=== PATIENT | male | born 1960 | race Caucasian/White ===

== ENCOUNTER 2022-03-01 10:40 | Inpatient (IN) | payer BC, SELFPAY ==
[2022-03-01] VITALS (60 sets, daily range): BP systolic 93–169; BP diastolic 63–134; PULSE 57–175; RESP 5–27; TEMP 36.7–36.9; O2SAT 95–99; BMI 25.7; BMI 25.1
--- NOTE | 2022-03-01 10:57 | ECG_ITS ---
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 Measurements Intervals [place] Rate: 158 P: 0 [place]: 0 QRS: 50 QRSD: 86 T: 80 QT: 267 QTc: 434 Interpretive Statements ATRIAL FIBRILLATION WITH RAPID VENTRICULAR RESPONSE WITH ABERRANT CONDUCTION OR VENTRICULAR PREMATURE COMPLEXES ANTEROSEPTAL MYOCARDIAL INFARCTION , OF INDETERMINATE AGE [40+ ms Q WAVE IN V1-V4] No previous ECG available for comparison Electronically Signed On 03-01-2022 17:46:58 SOFTWARE IMPLEMENTATION SPECIALIST by Antolin Arce M.D. [id number]
[2022-03-01] MEDS: dilTIAZem 5 mg/mL SDV 5 mL 20 MG IVP (11:17)
--- NOTE | 2022-03-01 11:19 | XR_ITS ---
WS: [id number] Exam: XR chest 1V portable [id number] Date/Time of Exam: 03/01/2022 11:22 AM Reason For Exam: a fib No priors. The lungs are fully expanded. Small bibasal pleural effusions are present. The heart is enlarged. The mediastinum is normal in contour. Bony structures are intact. XR/XR chest 1V portable [id number] IMPRESSION: 1. Cardiac enlargement and small bibasal pleural effusions. 2. No consolidating infiltrates.
--- NOTE | 2022-03-01 11:20 | ED_ITS ---
HPI - Arrhythmia/Palpitations General: Chief Complaint: Arrhythmia/Palpitations Stated Complaint: Dr. Campuzano sent for heart issues Time Seen by Provider: 03/01/22 10:53 Source: patient and family Mode of arrival: ambulatory Limitations: no limitations History of Present Illness: This patient was directed to the emergency department by his primary care doctor. He was diagnosed approximately 2 weeks a go with atrial fibrillation and begun on beta-sarah as well as JOMAR inhibitor and a DOAC. He originally thought he was having flulike symptoms as he felt some pressure in his chest and equated that with possible viral illness. He did not have fever chills cough sore throat, body aches or other symptoms. He was tested for COVID-19 as well as influenza both negative. At that time an EKG revealed building his to be in atrial fibrillation. He has not been diagnosed with this condition before although he says today that he thinks he may have had symptoms suggestive of that condition for a year. He does relate over the several days prior to his initial diagnosis 2 weeks ago that he felt that he was more breathless when he would ambulate his normal distances. He denied any chest pain, leg swelling etc. He has had no history of any significant cardiovascular disease. He previously was treated with calcium channel blockers in the past and he says was for hypertension. He states he had an echo many years ago told in the told him he had mild mitral regurgitation. He denies tobacco use, significant caffeine use or alcohol use. He has not taken any decongestants or other stimulants at this recently. States on occasion at night he feels like he has acid indigestion and its up and moves around and his symptoms improved. He is never had a history of peptic ulcer disease, does not take any nonsteroidals regularly etc. No blood in his stools or black tarry stools or abdominal pain. MD complaint: skipped beats , irregular heart beat and atrial fibrillation Associated symptoms: Deny anxiety, nausea, pre-syncope, syncope or vomiting Review of Systems Const: Denies: fever(s) or chills Eyes: Denies: change in vision ENMT: Denies: throat pain, odynophagia, nasal discharge or nasal congestion Card: Reports: palpitations, irregular heart rhythm and dyspnea on exertion; Denies: chest pain, lightheadedness, syncope or pre-syncope Resp: Denies: productive cough, non-productive cough, wheezing or stridor GI: Denies: abdominal pain, nausea, vomiting, hematochezia or melena : Denies: flank pain, dysuria or urinary frequency Musc: Denies: neck pain, back pain or extremity pain Skin/Breast: Denies: rash, pruritus or erythema Neuro: Denies: headache(s), numbness in extremities or weakness in extremities Psych: Denies: anxiety or depression Endo: Denies: polyuria or polydipsia Physical Exam Narrative: EXAM NARRATIVE: Patient is quite loquacious and answers questions in a goal-directed fashion and very extended discussions. He makes good eye contact. He appears to be in no acute distress. Const: COMMON NORMALS: no acute distress, average body habitus and patient oriented x3 GENERAL APPEARANCE: cooperative and comfortable HENMT: COMMON NORMALS: normocephalic, atraumatic, Normal nasal mucous membranes and turbinates present, moist oral mucous membranes and oropharynx normal HEAD & SCALP: normocephalic and atraumatic FACE & SINUS: normal facial exam NOSE: Normal nasal mucous membranes and turbinates present Eye: COMMON NORMALS: Equal, round and reactive pupils present, EOMs intact bilaterally and conjunctivae normal CONJUNCTIVA: Yes conjunctivae normal PUPIL: Yes Equal, round and reactive pupils present Neck/C-Spine: COMMON NORMALS: full ROM, no JVD, Thyroid normal and No carotid bruits THYROID: Thyroid normal Chest: COMMONS NORMALS: normal inspection of the chest and normal palpation of entire chest wall Resp: COMMON NORMALS: normal respiratory effort, No retractions, clear to auscultation bilaterally and percussion normal EFFORT & INSPECTION: Yes able to speak in complete sentences AUSCULTATION: clear to auscultation bilaterally PERCUSSION: percussion normal Cardio: COMMON NORMALS: no JVD, No murmurs present (Cardio) and Peripheral pulses 2+ throughout RATE: tachycardic RHYTHM: abnormal rhythm irregularly irregular PERIPHERAL PULSES: Peripheral pulses 2+ throughout GI: COMMON NORMALS: Normal to inspection, nondistended, normoactive bowel sounds present, Soft to palpation, non-tender and no masses PALPATION: Yes Soft to palpation : COMMON NORMALS: Yes no CVA tenderness BLADDER/KIDNEY EXAM: Yes no CVA tenderness Back/Pelvis: COMMON NORMALS: no CVA tenderness, thoracic and lumbar spine normal to inspection, no thoracic nor lumbar tenderness, thoraco-lumbar ROM normal and straight leg raise negative bilaterally Extremity: COMMON NORMALS: normal to inspection, full ROM, capillary refill normal, no calf tenderness and no pedal edema Neuro: COMMON NORMALS: patient oriented x3, moves all extremities, no focal motor deficits and no sensory deficits noted CRANIAL NERVES: Yes CN normal except as noted Psych: COMMON NORMALS: mental status grossly normal Skin: COMMON NORMALS: no rashes or lesions noted and turgor normal GENERAL SKIN EXAM: no rashes or lesions noted and turgor normal Course Reevaluation(s): Reevaluation #1: Patient received a single IV bolus dose of Cardizem followed by a p.o. dose. His heart rate initially was in the 101 10 range but gradually drifted up into the 150s with ambulation. Time: 14:25 Reevaluation #2: Discussed the need for continued observation, IV diltiazem and further evaluation to include probable echocardiogram etc. He voiced understanding and agreed with the plan. Time: 15:05 Consultations: Consultation #1: Discussed with Dr. Helm consulting hospitalist who agreed to place the patient in the hospital. Time: 15:05 Vital Signs: Vital signs: Vital Signs Temperature 98.0 F 03/01/22 10:53 Pulse Rate 108 H 03/01/22 11:45 Respiratory Rate 15 03/01/22 11:45 Blood Pressure 154/117 03/01/22 11:45 Pulse Oximetry 98 03/01/22 11:45 Oxygen Delivery Me thod 03/01/22 10:53 MDM - Arrhythmia/Palpitations Medical Decision Making This patient presented as referral from primary care office. He had been diagnosed with a new diagnosis of atrial fibrillation several days ago but has not responded to treatment as an outpatient. On initial presentation his heart rate was noted to be in A. fib with a ventricular response in the 150s. This did respond initially to IV diltiazem and a bolus form followed by p.o. form however after period of observation in the emergency department his rate continued to elevated into the 140s to 150s with even higher rates with ambulation. He is therefore being placed in the cardiac stepdown unit for continued rate control and further evaluation. No evidence of other emergency medical conditions at this time. Medical Records I reviewed the patient's medical records. Lab Data I reviewed the patient's lab results. 03/01/22 11:11 03/01/22 11:11 Radiology Impressions Chest X-Ray 03/01/22 11:19 IMPRESSION: 1. Cardiac enlargement and small bibasal pleural effusions. 2. No consolidating infiltrates. Laboratory Results WBC 9.6 10^3/uL (4.0-10.0) 03/01/22 11:11 RBC 5.28 10^6/uL (4.1-5.3) 03/01/22 11:11 Hgb 15.9 g/dL (11.7-16.6) 03/01/22 11:11 Hct 48.8 % (42.0-52.0) 03/01/22 11:11 MCV 92.4 fl (80-94) 03/01/22 11:11 MCH 30.1 pg (28.0-34.0) 03/01/22 11:11 MCHC 32.6 g/dL (30.0-36.0) 03/01/22 11:11 RDW 14.8 % (12.1-15.1) 03/01/22 11:11 Plt Count 147 10^3/cmm (130-400) 03/01/22 11:11 MPV 12.8 fL (7.4-10.4) H 03/01/22 11:11 Neut % (Auto) 77.3 % 03/01/22 11:11 Lymph % (Auto) 12.0 % 03/01/22 11:11 [place] % (Auto) 8.7 % 03/01/22 11:11 Eos % (Auto) 0.9 % 03/01/22 11:11 Baso % (Auto) 0.7 % 03/01/22 11:11 Neut # (Auto) 7.43 10^3/uL (1.8-7.7) 03/01/22 11:11 Lymph # (Auto) 1.2 10^3/uL (0.8-4.8) 03/01/22 11:11 [place] # (Auto) 0.8 10^3/uL (0.2-0.9) 03/01/22 11:11 Eos # (Auto) 0.1 10^3/uL (0.0-0.8) 03/01/22 11:11 Baso # (Auto) 0.1 10^3/uL (0.0-0.1) 03/01/22 11:11 Nucleated RBC % (auto) 0 % 03/01/22 11:11 Nucleated RBCs # 0.0 /100WBC 03/01/22 11:11 Sodium 139 mmol/L (136-145) 03/01/22 11:11 Potassium 4.1 mmol/L (3.5-5.1) 03/01/22 11:11 Chloride 103 mmol/L (98-107) 03/01/22 11:11 Carbon Dioxide 23 mmol/L (22-29) 03/01/22 11:11 Anion Gap 17.1 (5-19) 03/01/22 11:11 BUN 14 mg/dL (8-23) 03/01/22 11:11 Creatinine 0.9 mg/dL (0.7-1.2) 03/01/22 11:11 GFR Calculation 85.5 mL/min (90-130) L 03/01/22 11:11 Glucose 120 mg/dL (65-115) H 03/01/22 11:11 Calculated Osmolality 290 mOsm/kg (285-295) 03/01/22 11:11 Calcium 9.6 mg/dL (8.5-10.5) 03/01/22 11:11 Magnesium 2.0 mg/dL (1.7-2.3) 03/01/22 11:11 TSH 5.32 uIU/mL (0.27-4.20) H 03/01/22 11:11 EKG Data EKG 1: I personally reviewed and interpreted this EKG as follows: Interpretation: Initial EKG reveals resting heart rate to be 158 bpm. Narrow complex. Does have loss of anterior forces in V2 and V3 extending to V3 suggestive of possible anterior septal PA in the past. Consistent with atrial fibrillation with a rapid ventricular response. Other EKG comments: Chest X-Ray 03/01/22 11:19 IMPRESSION: 1. Cardiac enlargement and small bibasal pleural effusions. 2. No consolidating infiltrates. Discharge Plan Discharge Patient Disposition: Placed in Observation Clinical Impression: Atrial fibrillation with rapid ventricular response Condition: Stable Prescriptions: No Action latanoprost 0.005 % drops 1 drp ophthalmic (eye) BEDTIME lisinopril 10 mg tablet 10 mg PO DAILY brimonidine 0.2 % drops 1 drp ophthalmic (eye) BID dorzolamide-timolol 22.3-6.8 mg/mL drops 1 drp ophthalmic (eye) BID metoprolol tartrate 25 mg tablet 25 mg PO BID Eliquis 5 mg Tablet 5 mg PO BID Referrals: Ronna Campuzano DO [Primary Care Provider] - Coding Level of Care Code ED Liquid Waste Treatment Plant Operator for Chg Fwd Exam Comprehensive
[2022-03-01 11:31] LABS: Basophils # 0.1 10^3/uL (0.0-0.1); Basophils % 0.7 %; Eosinophils # 0.1 10^3/uL (0.0-0.8); Eosinophils % 0.9 %; Hematocrit 48.8 % (42.0-52.0); Hemoglobin 15.9 g/dL (11.7-16.6); Lymphocytes # 1.2 10^3/uL (0.8-4.8); Mean Corpuscular HGB Conc 32.6 g/dL (30.0-36.0); Mean Corpuscular Hemoglobin 30.1 pg (28.0-34.0); Mean Corpuscular Volume 92.4 fl (80-94); Mean Platelet Volume 12.8 fL (7.4-10.4); Monocytes # 0.8 10^3/uL (0.2-0.9); Monocytes % 8.7 %; Neutrophils # 7.43 10^3/uL (1.8-7.7); Neutrophils % 77.3 %; Nucleated Red Blood Cells % 0 %; Platelet Count 147 10^3/cmm (130-400); Red Blood Count 5.28 10^6/uL (4.1-5.3); Red Cell Distribution Width 14.8 % (12.1-15.1); White Blood Count 9.6 10^3/uL (4.0-10.0)
[2022-03-01] MEDS: dilTIAZem ER (12HR) 60 mg Capsule PO (11:33)
[2022-03-01 11:54] LABS: Anion Gap 17.1 (5-19); Blood Urea Nitrogen 14 mg/dL (8-23); Calcium 9.6 mg/dL (8.5-10.5); Carbon Dioxide 23 mmol/L (22-29); Chloride 103 mmol/L (98-107); Glomerular Filtration Rate 85.5 mL/min (90-130); Glucose 120 mg/dL (65-115); Osmolality Calculated 290 mOsm/kg (285-295); Potassium 4.1 mmol/L (3.5-5.1); Sodium 139 mmol/L (136-145); Thyroid Stimulating Hormone 5.32 uIU/mL (0.27-4.20)
[2022-03-01] MEDS: magnesium sulfate premix 2 GM/50 ML PIGGYBACK IV (13:08)
--- NOTE | 2022-03-01 13:14 | PC.NURSE ---
PT PLACED ON CONTINUOUS SPO2, NIBP, AND CM.
--- NOTE | 2022-03-01 14:17 | PC.NURSE ---
UPON WALKING 50 STEPS PT HR INCREASED AT TIMES TO 153BPM. NOTIFIED DR. NOONAN VERBALIZED UNDERSTANDING NO FURTHER ORDERS.
[2022-03-01] MEDS: dilTIAZem 100 MG in sodium chloride 0.9% (add-van) 100 ML IV (14:58)
--- NOTE | 2022-03-01 14:58 | PM.HP ---
Providers/Chief Complaint Primary Care Provider: Ronna Campuzano DO Chief Complaint: Dr. Campuzano sent for heart issues History of Present Illness Tomás Davis is a 61 year old male with pmh of mitral regurg (years ago), htn, glaucoma and recently diagnosed atrial fibrillation 10 days prior by PCP presents to ER after being sent by primary. He says he was asked to go to hospital 10 days ago but he decided not to come in and to try medication at home that was prescribed (metoprolol and eliquis). For last 2 weeks he has been having orthopnea and using more pillows to sleep. When he lays flat, its harder to breath he says. He was diagnosed with MR years ago but says he was told it was mild at the time. is present at bedside. Legs have been swelling up lately as well. He has lot of acid reflux for which he takes TUMS. Tums resolves the issue. Denies chest pain, sob on exertion, abdominal pain, n/v/d at this time. ED course. On arrival EKG shows afib with RVR, rate 140's. Given cardizem pushes and started on drip. CXR shows b/l pleural effusions Medications/Allergies Home Medications Medication Instructions Recorded Confirmed Last Taken Type apixaban 5 mg tablet (Eliquis) 5 mg PO BID 03/01/22 03/01/22 02/28/22 History brimonidine 0.2 % eye drops 1 drp ophthalmic (eye) BID 03/01/22 03/01/22 02/28/22 History dorzolamide 22.3 mg-timolol 6.8 1 drp ophthalmic (eye) BID 03/01/22 03/01/22 02/28/22 History mg/mL eye drops latanoprost 0.005 % eye drops 1 drp ophthalmic (eye) BEDTIME 03/01/22 03/01/22 02/28/22 History lisinopril 10 mg tablet 10 mg PO DAILY 03/01/22 03/01/22 02/28/22 History metoprolol tartrate 25 mg tablet 25 mg PO BID 03/01/22 03/01/22 02/28/22 History Allergies Allergy/AdvReac Type Severity Reaction Status Date / Time No Known Allergies Allergy Verified 03/01/22 11:26 Vitals/I&O/Wt Last Vital Signs Temp 98.0 F 03/01/22 10:53 Pulse 108 H 03/01/22 11:45 Resp 15 03/01/22 11:45 BP 154/117 03/01/22 11:45 Pulse Ox 98 03/01/22 11:45 O2 Del Method 03/01/22 10:53 Weight last 48 hrs Weight 81.193 kg Physical Exam Narrative: NAD, at bedside, appears well EOMI, NC/AT Lungs have b/l fine crackles at bases, no wheezes or ronchi abdomen soft, non tender, no guarding extermities, trace b/l LE edema upto knees neuro: non focal. Data 03/01/22 11:11 03/01/22 11:11 A&P Assessment and plan (1) Atrial fibrillation with rapid ventricular response: (2) HTN (hypertension): (3) Mitral regurgitation: (4) Heart failure: (5) Glaucoma: (6) Pleural effusion: (7) GERD (gastroesophageal reflux disease): Plan Afib w/ RVR HTN MR Glaucoma New onset HF, unspecified systolic or diastolic, will do workup B/L Pleural effusions GERD - Continue cardizem drip, lopressor 25 BID - Check echo - Check troponin series - EKG had no acute ischemic changes - Further management after echo - Lasix 40 IV x1 now - Lasix 40 IV daily - Hold lisinopril as pt on cardizem. Once optimized, will adjust lisinopril dosage. - Start aspirin - Continue Eliqius - Check HBA1C, lipid panel, TSH - Protonix 40 daily - Will consider cardiology consult once echo reviewed Full Code DVT PPX: Eliquis Attestations Medical Necessity Statement*: Will cross > 2 midnight stay for management of Atrial fibrillation and new onset heart failure Coding Level of Care Code Acute Harvest Crew Supervisor for Chg Fwd Diagnoses Atrial fibrillation with rapid ventricular response I48.91 HTN (hypertension) I10 Mitral regurgitation I34.0 Heart failure I50.9 Glaucoma H40.9 Pleural effusion J90 GERD (gastroesophageal reflux disease) K21.9
[2022-03-01] MEDS: FUROsemide 10 mg/mL SDV 2mL 20 MG IVP ×2 (16:09)
[2022-03-01 16:44] LABS: Chol HDL Ratio 1.66 mg/dL (1.0-5.00); Cholesterol 83 mg/dL (0-200); HDL Cholesterol 50 mg/dL (60-100); LDL Cholesterol Calculated 18 mg/dL (50-129); LDL HDL Ratio 0.36 RATIO (0.00-3.22); Triglycerides 75 mg/dL (0-150)
[2022-03-01 16:45] LABS: NT Pro B Type Natriuretic Pept 5664 pg/mL (0-125); Procalcitonin 0.11 ng/mL (0-0.5)
--- NOTE | 2022-03-01 16:54 | USCV_ITS ---
Tomás Davis Age: 61 Gender: M : 1960 Exam Date: 03/01/2022 17:25 Ordering Phys: Edwige Helm MD Technologist: Claire Urena Exam Location: [facility] [place] Indication: A FIB AND MITRAL REGURG BP: 140 / 90 HR: 38 Rhythm: Atrial flutter Technical Quality: Adequate MEASUREMENTS (Male / Female) Normal Values 2D ECHO LVOT Diameter 2.0 cm LV Ejection Fraction MOD 2C 53.1 % LV Ejection Fraction 2C AL 54.5 % LA Diameter 4.7 cm LA Width 4.5 cm LA Height 6.7 cm RA Width 4.9 cm RA Height 6.2 cm Aorta at Sinotubular Diameter 2.5 cm M-MODE Aortic Annulus Diameter 3.2 cm LA Ao Ratio MM 1.5 MV E Point Septal Separation 0.8 cm DOPPLER AV Peak Velocity 110.0 cm/s LVOT Peak Velocity 75.0 cm/s AV Area Cont Eq vti 2.2 cm squared AV Area Cont Eq pk 2.2 cm squared MV Peak Velocity 92.0 cm/s MV Area PHT 5.0 cm squared MV E' Velocity 65.0 cm/s Mitral E to MV E' Ratio 9.1 Mitral E to LV E' Lateral Ratio 7.0 Mitral E to LV E' Septal Ratio 13.1 TR Peak Velocity 196.3 cm/s TR Peak Gradient 15.4 mmHg TR Mean Velocity 142.3 cm/s TR Mean Gradient 8.3 mmHg TR Velocity Time Integral 51.0 cm TV Peak E Velocity 38.0 cm/s Right Atrial Pressure 8.0 mmHg Pulmonary Artery Systolic Pressu 23.4 mmHg PV Peak Velocity 110.0 cm/s RV Acceleration Time 0.1 s RV Ejection Time 0.2 s RV AcT/ET 0.2 FINDINGS Left Ventricle Dilated left ventricle. Mildly decreased left ventricular systolic function. Left ventricular ejection fraction is estimated at 45-50 %. Mild global left ventricular hypokinesis. Rhythm precludes evaluation of diastolic function. Right Ventricle Normal right ventricular size and systolic function. Right ventricular systolic pressure 23.4 mmHg. Right Atrium Mildly increased right atrial size. Left Atrium Markedly increased left atrial size. Mitral Valve Moderately thickened myxomatous appearing mitral valve. There appears to be a flail segment of posterior mitral leaflet. No mitral valve stenosis. Severe somewhat posteriorly directed mitral valve regurgitation (EROA =0.5 cm2, RV 60 ml) . Aortic Valve Structurally normal trileaflet aortic valve. No aortic valve stenosis. No aortic valve regurgitation. Tricuspid Valve Structurally normal tricuspid valve. No tricuspid valve stenosis. Trace to mild tricuspid valve regurgitation. Pulmonic Valve Structurally normal pulmonic valve. No pulmonary valve stenosis. Mild pulmonary valve regurgitation. Pericardium Trivial pericardial effusion. Aorta Normal size aortic root and proximal ascending aorta. IVC Inferior vena cava not visualized. CONCLUSIONS 1. Dilated left ventricle. Mildly decreased left ventricular systolic function. Left ventricular ejection fraction is estimated at 45-50 %. Mild global left ventricular hypokinesis. 2. Normal right ventricular size and systolic function. 3. Moderately thickened myxomatous appearing mitral valve. There appears to be a flail segment of posterior mitral leaflet. No mitral valve stenosis. Severe somewhat posteriorly directed mitral valve regurgitation (EROA =0.5 cm2, RV 60 ml) 4. Markedly increased left atrial size. 5. Trivial pericardial effusion. 6. No prior similar studies to compare. Holly Reyez MD (Electronically Signed) Final Date: 01 March 2022 22:02 S
--- NOTE | 2022-03-01 17:01 | PC.NURSE ---
PC TO CSU REPORT CALLED TO PHIL ALBA.
[2022-03-01] MEDS: metoprolol tartrate 25 mg Tablet PO (18:53)
[2022-03-01] MEDS: apixaban 5 mg Tablet PO (18:53)
--- NOTE | 2022-03-01 19:40 | PC.NURSE ---
While in room communications writer noticed a 15 beat run of Vtach. Patient is still on diltiazem.
--- NOTE | 2022-03-01 19:42 | PC.NURSE ---
Bedside report given to Austyn Alonso RN
[2022-03-01 19:44] LABS: Estmated Average Glucose 114; Hemoglobin A1C 5.6 % (4.0-6.0)
[2022-03-01] MEDS: brimonidine 0.2% Op Soln 5 mL Btl 1 DROP EYE-BOTH (21:05)
--- NOTE | 2022-03-01 22:09 | ECG_ITS ---
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 Measurements Intervals [place] Rate: 70 P: 0 [place]: 0 QRS: -37 QRSD: 88 T: -59 QT: 516 QTc: 558 Interpretive Statements ATRIAL FIBRILLATION WITH ABERRANT CONDUCTION OR VENTRICULAR PREMATURE COMPLEXES LEFT AXIS DEVIATION [QRS AXIS < -30] MODERATE T-WAVE ABNORMALITY, CONSIDER ANTEROLATERAL ISCHEMIA [-0.1+ mV T-WAVE IN V3-V6] MODERATE T-WAVE ABNORMALITY, CONSIDER INFERIOR ISCHEMIA [-0.1+ mV T-WAVE IN II/aVF] Compared to ECG 03/01/2022 10:57:27 Left-axis deviation now present T-wave abnormality now present Possible ischemia now present Myocardial infarct finding no longer present Electronically Signed On 03-02-2022 10:12:49 LITHOPRESS OPERATOR by Holly Reyez M.D. [id number]
[2022-03-01 23:28] LABS: Estmated Average Glucose 108; Hemoglobin A1C 5.4 % (4.0-6.0)
[2022-03-01 23:56] LABS: Troponin(5th) Baseline 30 ng/L (0-15)
[2022-03-02] VITALS (58 sets, daily range): BP systolic 95–126; BP diastolic 73–91; PULSE 65–115; RESP 15–22; TEMP 36.6–36.8; O2SAT 96–99
--- NOTE | 2022-03-02 00:09 | ECG_ITS ---
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 Measurements Intervals [place] Rate: 73 P: 0 [place]: 0 QRS: -40 QRSD: 87 T: -48 QT: 483 QTc: 533 Interpretive Statements ATRIAL FIBRILLATION WITH ABERRANT CONDUCTION OR VENTRICULAR PREMATURE COMPLEXES LEFT AXIS DEVIATION [QRS AXIS < -30] MODERATE T-WAVE ABNORMALITY, CONSIDER ANTEROLATERAL ISCHEMIA [-0.1+ mV T-WAVE IN V3-V6] Compared to ECG 03/01/2022 22:50:24 No significant changes Electronically Signed On 03-03-2022 9:27:21 FOOD PRODUCTION MACHINE OPERATOR by Holly Reyez M.D. [id number]
[2022-03-02 00:54] LABS: Free T4 Free Thyroxine 1.21 ng/dL (0.82-1.77)
[2022-03-02 01:12] LABS: Basophils % 0.6 %; Eosinophils # 0.2 10^3/uL (0.0-0.8); Eosinophils % 2.6 %; Hematocrit 38.9 % (42.0-52.0); Hemoglobin 12.8 g/dL (11.7-16.6); Lymphocytes % 15.7 %; Mean Corpuscular HGB Conc 32.9 g/dL (30.0-36.0); Mean Corpuscular Hemoglobin 30.5 pg (28.0-34.0); Mean Corpuscular Volume 92.8 fl (80-94); Monocytes # 0.6 10^3/uL (0.2-0.9); Monocytes % 9.8 %; Neutrophils # 4.66 10^3/uL (1.8-7.7); Neutrophils % 71.1 %; Nucleated Red Blood Cells % 0 %; Platelet Count 107 10^3/cmm (130-400); Red Blood Count 4.19 10^6/uL (4.1-5.3); Red Cell Distribution Width 14.8 % (12.1-15.1); White Blood Count 6.6 10^3/uL (4.0-10.0)
[2022-03-02 01:28] LABS: Anion Gap 13.7 (5-19); Blood Urea Nitrogen 16 mg/dL (8-23); Calcium 8.8 mg/dL (8.5-10.5); Carbon Dioxide 25 mmol/L (22-29); Chloride 102 mmol/L (98-107); Glomerular Filtration Rate 85.5 mL/min (90-130); Glucose 137 mg/dL (65-115); Magnesium 2.1 mg/dL (1.7-2.3); Osmolality Calculated 287 mOsm/kg (285-295); Potassium 3.7 mmol/L (3.5-5.1); Sodium 137 mmol/L (136-145)
--- NOTE | 2022-03-02 04:09 | ECG_ITS ---
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 Measurements Intervals [place] Rate: 64 P: 0 [place]: 0 QRS: -38 QRSD: 93 T: -48 QT: 485 QTc: 504 Interpretive Statements ATRIAL FIBRILLATION WITH ABERRANT CONDUCTION OR VENTRICULAR PREMATURE COMPLEXES LEFT AXIS DEVIATION [QRS AXIS < -30] ANTEROSEPTAL MYOCARDIAL INFARCTION , PROBABLY RECENT Compared to ECG 03/02/2022 00:39:35 Myocardial infarct finding now present T-wave abnormality no longer present Possible ischemia no longer present Electronically Signed On 03-03-2022 9:26:25 RESIDENTIAL CONCIERGE by Holly Reyez M.D. [id number]
[2022-03-02 05:10] LABS: Troponin 5 6HR 27.77 ng/L (0-15)
[2022-03-02 05:11] LABS: Troponin 5 6HR Delta -2.23 ng/L (0-12)
[2022-03-02] MEDS: metoprolol tartrate 25 mg Tablet PO (09:03)
[2022-03-02] MEDS: apixaban 5 mg Tablet PO (09:04)
[2022-03-02] MEDS: brimonidine 0.2% Op Soln 5 mL Btl 1 DROP EYE-BOTH (09:05)
--- NOTE | 2022-03-02 11:18 | PM.CONSULT ---
Providers/Reason For Consult Consulting Physician/Specialty*: Antolin Arce MD/ Cardiology Reason for Consult*: Afib with RVR/ LV dysfunction Requesting Physician: Dr Helm Attending Physician: Edwige Helm MD Primary Care Provider: Ronna Campuzano DO History of Present Illness History of Present Illness Tomás Davis is a 61 year old male with past medical history of mitral regurgitation, atrial fibrillation on Eliquis presented to the hospital with palpitations and orthopnea symptoms. He says for the last 3 weeks that he is unable to walk any significant distance secondary to palpitations and feeling weak. He was found to be in A. fib with RVR. He is currently on a Cardizem drip. He is also taking Eliquis. Echocardiogram was performed that showed mildly reduced LV systolic function with EF of 45% and severe mitral regurgitation with possible flail posterior leaflet. Review of Systems Const: Denies: fever(s) or chills Eyes: Denies: change in vision ENMT: Denies: throat pain, odynophagia, nasal discharge or nasal congestion Card: Reports: palpitations, irregular heart rhythm and dyspnea on exertion; Denies: chest pain, lightheadedness, syncope or pre-syncope Resp: Denies: productive cough, non-productive cough, wheezing or stridor GI: Denies: abdominal pain, nausea, vomiting, hematochezia or melena : Denies: flank pain, dysuria or urinary frequency Musc: Denies: neck pain, back pain or extremity pain Skin/Breast: Denies: rash, pruritus or erythema Neuro: Denies: headache(s), numbness in extremities or weakness in extremities Psych: Denies: anxiety or depression Endo: Denies: polyuria or polydipsia Medications/Allergies Home Medications Medication Instructions Recorded Confirmed Last Taken Type apixaban 5 mg tablet (Eliquis) 5 mg PO BID 03/01/22 03/01/22 02/28/22 History brimonidine 0.2 % eye drops 1 drp ophthalmic (eye) BID 03/01/22 03/01/22 02/28/22 History dorzolamide 22.3 mg-timolol 6.8 1 drp ophthalmic (eye) BID 03/01/22 03/01/22 02/28/22 History mg/mL eye drops latanoprost 0.005 % eye drops 1 drp ophthalmic (eye) BEDTIME 03/01/22 03/01/22 02/28/22 History lisinopril 10 mg tablet 10 mg PO DAILY 03/01/22 03/01/22 02/28/22 History metoprolol tartrate 25 mg tablet 25 mg PO BID 03/01/22 03/01/22 02/28/22 History Allergies Allergy/AdvReac Type Severity Reaction Status Date / Time No Known Allergies Allergy Verified 03/01/22 11:26 Current Medications Generic Name Dose Route Start Last Admin Trade Name Joshq PRN Reason Stop Dose Admin Apixaban 5 mg 03/01/22 18:00 03/02/22 09:04 Apixaban 5 Mg Tablet PO 5 mg BID LA NENA Administration Brimonidine Tartrate 1 drop 03/01/22 18:00 03/02/22 09:05 Brimonidine 0.2% Op Soln 5 Ml Btl EYE-BOTH 1 drop BID LA NENA Administration Dorzolamide/Timolol 1 drop 03/01/22 18:00 03/01/22 21:16 Dorzolamide/Timolol Op Soln 10 Ml Btl EYE-BOTH Not Given BID LA NENA Diltiazem HCl 100 mg/ Sodium 100 mls @ 0 mls/hr 03/01/22 14:30 03/01/22 14:58 Chloride IV 5 mg/hr .Q0M LA NENA 5 mls/hr Administration Protocol Per Protocol Latanoprost 1 drop 03/01/22 21:00 03/01/22 21:16 Latanoprost 0.005% Op Soln 2.5 Ml Btl EYE-BOTH Not Given BEDTIME LA NENA Metoprolol Tartrate 25 mg 03/01/22 18:00 03/02/22 09:03 Metoprolol Tartrate 25 Mg Tablet PO 25 mg BID LA NENA Administration Vitals/I&O/Wt Last Vital Signs Temp 98.1 F 03/02/22 07:02 Pulse 82 03/02/22 07:02 Resp 18 03/02/22 07:02 BP 125/86 03/02/22 07:02 Pulse Ox 98 03/02/22 07:02 O2 Del Method 03/01/22 20:00 03/01/22 03/02/22 03/02/22 22:59 06:59 14:59 Intake Total 50 / 50 360 / 360 Output Total 600 / 600 800 / 1400 200 / 200 Balance -550 / -550 -800 / -1350 160 / 160 Weight last 48 hrs Weight 175 lb 3 oz Weight 179 lb Physical Exam Narrative: GENERAL: Patient is alert, awake and oriented x3. [] NECK: No jugular vein distension. [] HEENT: No cyanosis. No icterus. No pallor. [] HEART: Regular S1 and S2. Grade 4/6 systolic murmur LUNGS: Clear to auscultate bilaterally. [] CENTRAL NERVOUS SYSTEM: Grossly nonfocal. [] EXTREMITIES: Lower extremities with 1+ edema bilaterally. Pulses palpable in the lower extremities, both dorsalis pedis and posterior tibial. [] Data 03/02/22 01:02 03/02/22 01:02 A&P Assessment and plan (1) Mitral regurgitation: (2) HTN (hypertension): (3) Atrial fibrillation with rapid ventricular response: (4) Congestive heart failure: Plan Patient has A. fib with RVR. Currently on Cardizem drip. Heart rates are improved. Cardizem drip can be switched to p.o. medications. Will recommend increasing metoprolol dose to 50 mg twice daily. Will perform YONNY to confirm diagnosis of severe MR and evaluate valvular anatomy. If confirms flail leaflet with severe MR, he will need valvular repair. Surgery in future. In preparation for surgery and secondary to decreased LV systolic function, will need coronary angiogram and right heart cath following YONNY. N.p.o. past midnight Switch Eliquis to IV heparin in preparation for coronary angiogram. Thank you for involving us with care of this patient. We will continue to follow. Please call with questions. Consult Attestations Medical Necessity Statement: Care expected to cross 2 midnights. Coding Level of Care Code Acute Belt Conveyor Drier for Chg Fwd Diagnoses Mitral regurgitation I34.0 HTN (hypertension) I10 Atrial fibrillation with rapid ventricular response I48.91 Congestive heart failure I50.9
--- NOTE | 2022-03-02 13:04 | PM.PN ---
Subjective Subjective: seen this AM. Still on cardizem drip Vitals reviewed Pt denies chest pain, sob. Vitals/I&O/Wt Last Vital Signs Temp 98.1 F 03/02/22 07:02 Pulse 79 03/02/22 11:44 Resp 20 H 03/02/22 11:44 BP 95/76 03/02/22 11:44 Pulse Ox 98 03/02/22 11:44 O2 Del Method 03/01/22 20:00 03/01/22 03/02/22 03/02/22 22:59 06:59 14:59 Intake Total 50 / 50 480 / 480 Output Total 600 / 600 800 / 1400 200 / 200 Balance -550 / -550 -800 / -1350 280 / 280 Weight last 48 hrs Weight 79.464 kg Weight 81.193 kg Physical Exam Narrative: NAD, at bedside, appears well EOMI, NC/AT Lungs have b/l fine crackles at bases, mild ronchi present as well. abdomen soft, non tender, no guarding extermities, trace b/l LE edema upto knees neuro: non focal. Data 03/02/22 01:02 03/02/22 01:02 A&P Assessment and plan (1) Atrial fibrillation with rapid ventricular response: (2) HTN (hypertension): (3) Mitral regurgitation: (4) Heart failure: (5) Glaucoma: (6) Pleural effusion: (7) GERD (gastroesophageal reflux disease): Plan Afib w/ RVR HTN MR Glaucoma New onset HF, systolic most likely 2/2 to severe MR and rate related 2/2 to Afib with RVR B/L Pleural effusions GERD - Stop cardizem drip. Place on lopressor 50 BID. - Echo shows global hypokinesia, EF 45-50% and severe MR. - Trops negative. - EKG had no acute ischemic changes - Lasix 40 IV daily - Hold lisinopril as pt on cardizem. - Hold eliquis. Switch to heparin drip. - A1c, lipid profile, tsh reviewed. T4 pending. - YONNY in AM. Angiogram on Monday. - Cardio consulted. - Protonix 40 daily - NPO at midnight Full Code DVT PPX: Eliquis Attestations Medical Necessity Statement*: Will cross > 2 midnight stay for management of Atrial fibrillation and new onset heart failure Coding Level of Care Code Acute Speed Operator for Chg Fwd Diagnoses Atrial fibrillation with rapid ventricular response I48.91 HTN (hypertension) I10 Mitral regurgitation I34.0 Heart failure I50.9 Glaucoma H40.9 Pleural effusion J90 GERD (gastroesophageal reflux disease) K21.9
[2022-03-02] MEDS: FUROsemide 10 mg/mL SDV 4mL 40 MG IVP (15:53)
[2022-03-02] MEDS: metoprolol tartrate 50 mg Tablet PO (18:03)
[2022-03-02] MEDS: heparin drip 25,000 UNIT/500 ML PREMIX 22 UNIT IV (21:41)
[2022-03-02] MEDS: heparin 5,000 unit/mL INJ 1 mL IV (21:42)
[2022-03-03] VITALS (12 sets, daily range): BP systolic 96–123; BP diastolic 53–91; PULSE 87–120; RESP 7–19; TEMP 36.1–36.9; O2SAT 96–100
[2022-03-03 04:57] LABS: Basophils % 0.6 %; Eosinophils # 0.3 10^3/uL (0.0-0.8); Eosinophils % 3.8 %; Hematocrit 42.8 % (42.0-52.0); Lymphocytes # 1.3 10^3/uL (0.8-4.8); Lymphocytes % 19.4 %; Mean Corpuscular HGB Conc 32.7 g/dL (30.0-36.0); Mean Corpuscular Hemoglobin 29.9 pg (28.0-34.0); Mean Corpuscular Volume 91.5 fl (80-94); Mean Platelet Volume 13.1 fL (7.4-10.4); Monocytes # 0.8 10^3/uL (0.2-0.9); Monocytes % 11.7 %; Neutrophils # 4.26 10^3/uL (1.8-7.7); Neutrophils % 64.2 %; Nucleated Red Blood Cells % 0 %; Platelet Count 115 10^3/cmm (130-400); Red Blood Count 4.68 10^6/uL (4.1-5.3); Red Cell Distribution Width 14.6 % (12.1-15.1); White Blood Count 6.6 10^3/uL (4.0-10.0)
[2022-03-03 05:21] LABS: Anion Gap 12.7 (5-19); Blood Urea Nitrogen 16 mg/dL (8-23); Calcium 9.1 mg/dL (8.5-10.5); Carbon Dioxide 26 mmol/L (22-29); Chloride 104 mmol/L (98-107); Glomerular Filtration Rate 85.5 mL/min (90-130); Glucose 94 mg/dL (65-115); Osmolality Calculated 289 mOsm/kg (285-295); Potassium 3.7 mmol/L (3.5-5.1); Sodium 139 mmol/L (136-145)
[2022-03-03 05:37] LABS: Partial Thromboplastin Time 151.7 SECONDS (23.9-36.7)
[2022-03-03] MEDS: metoprolol tartrate 50 mg Tablet PO (08:07)
[2022-03-03] MEDS: brimonidine 0.2% Op Soln 5 mL Btl 1 DROP EYE-BOTH ×2 (08:08→17:31)
[2022-03-03] MEDS: LORazepam 2 mg/mL INJ 1 mL 0.25 MG IVP (09:31)
--- NOTE | 2022-03-03 10:46 | PC.CHAP ---
Pastoral Care Encounter/Spiritual Assessment Type of Contact [] Declined stockbroker visit [] Patient/Family/Request visit [] Outpatient visit [] Follow-up visit [] Physician referral [] Code/Alert [x] Routine visit [] Staff referral [] Actively dying [] Patient sleeping [] Family support [] [x] Out of room [] Palliative care [] [] Receiving care in room [] Pre-surgical visit [] Trauma [] Long length of stay [] ICU visit [] Other: Relational/Emotional Strength [] Patient feels connected with others/family/visitors/staff [] Distress [] Loneliness/isolation [] Abandonment Spirituality of Patient [] Person of Katie [] Attends Congregation of their Katie [] Believes in Prayer [] Reads Bible or Mosque materials [] There are Spiritual issues to be addressed Machine Gun Mechanic Interventions [] Prayer [] Active listening [] Non-anxious presence [] Spiritual/emotional support [] Crisis/trauma care [] Spiritual counseling [] Bereavement support [] Provided bereavement packet [] Provided Bible/devotional materials [] Provided toy/stuffed animal, coloring book to patient or family member [] Provided Communion [] Anointing/[place] [] Salvation [] Completed spiritual assessment [] Other: Impact on Illness or Injury [] Angry [] Fearful [] Anxious [] Often cries [] Exhaustion [] Unable to work [] Unable to attend islam [] Unable to walk/stand [] Unable to read [] Unable to drive [] Unable to eat/drink [] Unable to sleep [] Unable to be with family [] Patient intubated [] Other: Summary Time spent with patient
--- NOTE | 2022-03-03 11:09 | USCV_ITS ---
Tomás Davis Age: 61 Gender: M : 1960 Exam Date: 03/03/2022 12:34 Ordering Phys: Antolin Arce M.D ([email or web address]) Technologist: Niraj Caldera Exam Location: [facility] – [place] Indication: flail mitral BP: / HR: Rhythm: Sinus Technical Quality: Good MEASUREMENTS (Male / Female) Normal Values Medications Complications None Proc. Components After anesthesia team ministered to the patient, we proceeded with intubation with the YONNY probe. FINDINGS Left Ventricle Left ventricle is normal in size. LV systolic function appears to be normal Right Ventricle Normal in size and function Right Atrium Normal in size Left Atrium Appears to be dilated LA Appendage No left atrial appendage thrombus is seen. IA Septum Normal Mitral Valve Posterior mitral valve leaflet ( likely P2 ) is flail. Severe mitral regurgitation is seen. Aortic Valve Structurally normal aortic valve. Tricuspid Valve Structurally normal tricuspid valve. Mild tricuspid regurgitation. Pulmonic Valve Appears to be normal. Mild pulmonic regurgitation. Pericardium Appears to be normal Aorta Mild atherosclerotic plaque is seen CONCLUSIONS LV systolic function appears to be normal. Left atrial dilation Posterior mitral valve leaflet (likely P2) is flail. Severe mitral regurgitation is seen. Mild tricuspid regurgitation Mild pulmonic regurgitation Mild atherosclerotic plaque is seen. Antolin Arce MD (Electronically Signed) Final Date: 10 March 2022 09:59 S
--- NOTE | 2022-03-03 11:28 | PC.NURSE ---
to dudley in gi lab at 1130,via w/c
[2022-03-03] MEDS: sodium chloride 0.9% 1,000 ML 30 ML IV (11:56)
--- NOTE | 2022-03-03 11:59 | ANES.PREANE2 ---
Pre-Anesthetic Assessment Height/Weight: Height 1.78 m Weight 79.464 kg Temp Pulse Resp BP Pulse Ox O2 Del Method 97.0 F L 87 18 117/79 96 03/03/22 11:57 03/03/22 11:57 03/03/22 11:57 03/03/22 11:57 03/03/22 11:57 03/03/22 11:57 Operation Date: 03/03/22 12:30 Proposed Procedures p YONNY(Not Applicable) - Cami Hdz Beta Prem taken within 24 hours: Yes Was Clonidine taken within 24 hours: N/A Last intake: Intake Last Liquid Date 03/03/22 Last Liquid Time 07:00 Last Solid Date 03/02/22 Last Solid Time 20:00 Social No alcohol and No tobacco Exam alert, oriented x 3, clear to auscultation bilaterally and regular rate & rhythm Airway Submandibular: within normal limits Cervical ROM: within normal limits Mallampati: Class II Dentition: false History/ROS No significant history except as noted and No significant complaints Pulmonary Pleural effusion CV/HEM Hypertension and Murmur None reported Hepatic None reported GI Gastroesophageal Reflux Disease Metabolic None reported Musc/skel None reported Neuropsych None reported Anesthetic Plan ASA status: 3 Anesthesia: Anesthesia Evaluation and MAC Risk of > 500 ml blood loss (7ml/kg in children): No Medications/Allergies Home Medications Medication Instructions Recorded Confirmed Last Taken Type apixaban 5 mg tablet (Eliquis) 5 mg PO BID 03/01/22 03/01/22 02/28/22 History brimonidine 0.2 % eye drops 1 drp ophthalmic (eye) BID 03/01/22 03/01/22 02/28/22 History dorzolamide 22.3 mg-timolol 6.8 1 drp ophthalmic (eye) BID 03/01/22 03/01/22 02/28/22 History mg/mL eye drops latanoprost 0.005 % eye drops 1 drp ophthalmic (eye) BEDTIME 03/01/22 03/01/22 02/28/22 History lisinopril 10 mg tablet 10 mg PO DAILY 03/01/22 03/01/22 02/28/22 History metoprolol tartrate 25 mg tablet 25 mg PO BID 03/01/22 03/01/22 02/28/22 History Allergies Allergy/AdvReac Type Severity Reaction Status Date / Time No Known Allergies Allergy Verified 03/01/22 11:26 Current Medications Generic Name Dose Route Start Last Admin Trade Name Freq PRN Reason Stop Dose Admin Brimonidine Tartrate 1 drop 03/01/22 18:00 03/03/22 08:08 Brimonidine 0.2% Op Soln 5 Ml Btl EYE-BOTH 1 drop BID LA NENA Administration Dorzolamide/Timolol 1 drop 03/01/22 18:00 03/03/22 08:09 Dorzolamide/Timolol Op Soln 10 Ml Btl EYE-BOTH Not Given BID LA NENA Heparin Sodium (Porcine) 0 unit 03/02/22 11:49 03/02/22 21:42 Heparin 5,000 Unit/Ml Inj 1 Ml IV 4,000 unit PRN PRN Administration Heparin weight-base protocol Protocol Heparin Sodium/Sodium Chloride 25,000 unit in 500 mls @ 0 mls/hr 03/02/22 12:00 03/03/22 05:41 Heparin Drip IV 10.7 unit/kg/hr .Q0M LA NENA 17 mls/hr Titration Protocol Per Protocol Sodium Chloride 1,000 mls @ 30 mls/hr 03/03/22 11:15 03/03/22 11:56 Sodium Chloride 0.9% IV 03/04/22 11:14 30 mls/hr .Q24H LA NENA Administration Latanoprost 1 drop 03/01/22 21:00 03/02/22 21:00 Latanoprost 0.005% Op Soln 2.5 Ml Btl EYE-BOTH Not Given BEDTIME LA NENA Metoprolol Tartrate 50 mg 03/02/22 18:00 03/03/22 08:07 Metoprolol Tartrate 50 Mg Tablet PO 50 mg BID LA NENA Administration Data Anesthesia 03/03/22 03:59 03/03/22 03:59 Short CBC 03/02/22 03/03/22 Range/Units 01:02 03:59 WBC 6.6 6.6 (4.0-10.0) 10^3/uL Hgb 12.8 14.0 (11.7-16.6) g/dL Hct 38.9 L 42.8 (42.0-52.0) % MCV 92.8 91.5 (80-94) fl Plt Count 107 L 115 L (130-400) 10^3/cmm Neut % (Auto) 71.1 64.2 % Neut # (Auto) 4.66 4.26 (1.8-7.7) 10^3/uL BMP 03/02/22 03/03/22 01:02 03:59 Sodium 137 139 Potassium 3.7 3.7 Chloride 102 104 Carbon Dioxide 25 26 BUN 16 16 Creatinine 0.9 0.9 Glucose 137 H 94 Calcium 8.8 9.1 Cardiac Enzymes 03/01/22 03/01/22 03/02/22 Range/Units 11:11 22:44 01:02 Troponin T Baseline 30 H (0-15) ng/L Troponin T 120 Minute 32.00 H (0-15) ng/L Delta Troponin T 2.00 (0-10) ABS# Troponin T Hi Sens 6Hr (0-15) ng/L Troponin T Hi Sens 6Hr Delta (0-12) ng/L NT-Pro-B Natriuret Pep 5664 H (0-125) pg/mL 03/02/22 Range/Units 04:25 Troponin T Baseline (0-15) ng/L Troponin T 120 Minute (0-15) ng/L Delta Troponin T (0-10) ABS# Troponin T Hi Sens 6Hr 27.77 H (0-15) ng/L Troponin T Hi Sens 6Hr Delta -2.23 L (0-12) ng/L NT-Pro-B Natriuret Pep (0-125) pg/mL Coags 03/03/22 03:59 APTT 151.7 H* Cardiac Studies: Echocardiogram 03/01/22
--- NOTE | 2022-03-03 12:01 | W.PM.OPSUD ---
Surgery/Procedure H&P Update DATE OF PROCEDURE: March 03, 2022 DATE H&P PERFORMED: 03/02/22 H&P UPDATE INFORMATION: I have reviewed H&P completed within last 30 days, I have examined patient prior to procedure and No changes to prior documentation PREOP DIAGNOSIS: Severe mitral regurgitation PRIMARY INDICATION FOR PROCEDURE: Severe mitral regurgitation PLANNED PROCEDURE: Operation Date: 03/03/22 12:30 Proposed Procedures p YONNY(Not Applicable) - Antolin Arce M.D PHYSICAL EXAM: alert OTHER PERTINENT EXAM FINDINGS: Has afib with R
[2022-03-03 12:05] LABS: Partial Thromboplastin Time 87.8 SECONDS (23.9-36.7)
--- NOTE | 2022-03-03 12:27 | PM.PN ---
Subjective Subjective: seen this morning tachycardic, afib rvr HR 130-140's no acute events overnight going for YONNY today denies chest pain, sob Vitals/I&O/Wt Last Vital Signs Temp 97.0 F L 03/03/22 11:57 Pulse 87 03/03/22 11:57 Resp 18 03/03/22 11:57 BP 117/79 03/03/22 11:57 Pulse Ox 96 03/03/22 11:57 O2 Del Method 03/03/22 11:57 03/02/22 03/03/22 03/03/22 22:59 06:59 14:59 Intake Total 840 / 1320 176 / 1496 0 / 0 Output Total 300 / 500 Balance 840 / 1120 -124 / 996 0 / 0 Weight last 48 hrs Weight 79.464 kg Physical Exam Narrative: NAD, at bedside, appears well EOMI, NC/AT Lungs have b/l fine crackles at bases, mild ronchi present as well. normal s1, s2, tachycardic, irregularly irregular, abdomen soft, non tender, no guarding extermities, trace b/l LE edema upto knees neuro: non focal. Data 03/03/22 03:59 03/03/22 03:59 A&P Assessment and plan (1) Atrial fibrillation with rapid ventricular response: (2) HTN (hypertension): (3) Mitral regurgitation: (4) Heart failure: (5) Glaucoma: (6) Pleural effusion: (7) GERD (gastroesophageal reflux disease): Plan Afib w/ RVR HTN MR Glaucoma New onset HF, systolic most likely 2/2 to severe MR and rate related 2/2 to Afib with RVR B/L Pleural effusions GERD - Stop cardizem drip. Place on lopressor 50 BID. - Echo shows global hypokinesia, EF 45-50% and severe MR. - Trops negative. - EKG had no acute ischemic changes - Lasix 40 IV BID - Hold eliquis. Switch to heparin drip. - A1c, lipid profile, tsh reviewed. T4 pending. - YONNY in AM. Angiogram on Monday. - Cardio consulted. - Protonix 40 daily - NPO at midnight - Metoprolol 75 BID - Cardio recs appreciated. Full Code DVT PPX: On heparin drip Attestations Medical Necessity Statement*: Will cross > 2 midnight stay for management of Atrial fibrillation and new onset heart failure Coding Level of Care Code Acute Complex Human Resources Manager for Chg Fwd Diagnoses Atrial fibrillation with rapid ventricular response I48.91 HTN (hypertension) I10 Mitral regurgitation I34.0 Heart failure I50.9 Glaucoma H40.9 Pleural effusion J90 GERD (gastroesophageal reflux disease) K21.9
--- NOTE | 2022-03-03 13:19 | PC.NURSE ---
received from gi lab post dudley.pt tolerated procedure well
--- NOTE | 2022-03-03 13:26 | P.PN_ITS ---
Subjective Subjective: Patient underwent YONNY today that confirmed flail posterior leaflet and severe mitral regurgitation. Vitals/I&O/Wt Last Vital Signs Temp 97.5 F L 03/03/22 13:02 Pulse 97 03/03/22 13:02 Resp 17 03/03/22 13:02 BP 103/53 03/03/22 13:02 Pulse Ox 98 03/03/22 13:02 O2 Del Method 03/03/22 13:02 FiO2 6 03/03/22 12:59 03/02/22 03/03/22 03/03/22 22:59 06:59 14:59 Intake Total 840 / 1320 176 / 1496 200 / 200 Output Total 300 / 500 Balance 840 / 1120 -124 / 996 200 / 200 Weight last 48 hrs Weight 175 lb 3 oz Physical Exam Narrative: GENERAL: Patient is alert, awake and oriented x3. [] NECK: No jugular vein distension. [] HEENT: No cyanosis. No icterus. No pallor. [] HEART: Regular S1 and S2. Grade 4/6 systolic murmur LUNGS: Clear to auscultate bilaterally. [] CENTRAL NERVOUS SYSTEM: Grossly nonfocal. [] EXTREMITIES: Lower extremities with 1+ edema bilaterally. Pulses palpable in the lower extremities, both dorsalis pedis and posterior tibial. [] Data 03/03/22 03:59 03/03/22 03:59 A&P Assessment and plan (1) Mitral regurgitation: (2) HTN (hypertension): (3) Atrial fibrillation with rapid ventricular response: (4) Congestive heart failure: Plan Heart rate is elevated. Uptitrate metoprolol to 75 mg twice daily. YONNY was performed today that shows severe MR with flail posterior leaflet. Plan for coronary angiogram with possible percutaneous coronary intervention tomorrow. N.p.o. past midnight Continue heparin Thank you for involving us with care of this patient. We will continue to follow. Please call with questions. Attestations Medical Necessity Statement*: Care expected to cross 2 midnights. Coding Level of Care Code Acute Airplane Tester for Yohana Fwd Diagnoses Mitral regurgitation I34.0 HTN (hypertension) I10 Atrial fibrillation with rapid ventricular response I48.91 Congestive heart failure I50.9
--- NOTE | 2022-03-03 13:40 | ANE.PACU2 ---
Inpatient post-anesthesia follow up: Airway intact: Yes Vital signs: Temperature 97.5 F Pulse Rate 97 Respiratory Rate 17 Blood Pressure 103/53 Pulse Oximetry 98 Oxygen Delivery Me thod Room Air Oxygen Flow Rate Fraction of Inspir ed Oxygen 6 Hydration adequate: Yes Nausea and vomiting: No Pain level: 2 Mental status: Baseline
[2022-03-03] MEDS: FUROsemide 10 mg/mL SDV 4mL 40 MG IVP (14:09)
[2022-03-03] MEDS: potassium chloride ER 20 mEq Tablet PO (14:09)
[2022-03-03] MEDS: metoprolol tartrate 50 mg Tablet 75 MG PO (16:29)
[2022-03-03 19:01] LABS: Partial Thromboplastin Time 55.1 SECONDS (23.9-36.7)
[2022-03-03] MEDS: heparin drip 25,000 UNIT/500 ML PREMIX 17 UNIT IV (21:23)
[2022-03-03] MEDS: latanoprost 0.005% Op Soln 2.5 mL Btl 1 DROP EYE-BOTH (21:25)
[2022-03-04] VITALS (9 sets, daily range): BP systolic 109–128; BP diastolic 74–97; PULSE 72–133; RESP 13–18; TEMP 36.6–36.8; O2SAT 94–99
[2022-03-04] MEDS: FUROsemide 10 mg/mL SDV 4mL 40 MG IVP (00:06)
[2022-03-04 02:05] LABS: Platelet Count 116 10^3/cmm (130-400)
[2022-03-04 02:35] LABS: Anion Gap 14.1 (5-19); Blood Urea Nitrogen 23 mg/dL (8-23); Calcium 9.4 mg/dL (8.5-10.5); Carbon Dioxide 31 mmol/L (22-29); Chloride 101 mmol/L (98-107); Glomerular Filtration Rate 55.9 mL/min (90-130); Glucose 87 mg/dL (65-115); Osmolality Calculated 297 mOsm/kg (285-295); Potassium 4.1 mmol/L (3.5-5.1); Sodium 142 mmol/L (136-145)
[2022-03-04 02:36] LABS: Partial Thromboplastin Time 42.9 SECONDS (23.9-36.7)
[2022-03-04] MEDS: heparin 5,000 unit/mL INJ 1 mL IV ×2 (02:51→19:16)
[2022-03-04 09:32] LABS: Partial Thromboplastin Time 83.6 SECONDS (23.9-36.7)
[2022-03-04] MEDS: brimonidine 0.2% Op Soln 5 mL Btl 1 DROP EYE-BOTH ×2 (10:01→18:24)
[2022-03-04] MEDS: dorzolamide/timolol Op Soln 10 mL Btl 1 DROP EYE-BOTH ×2 (10:03→18:23)
[2022-03-04] MEDS: metoprolol tartrate 50 mg Tablet 75 MG PO ×2 (12:03→18:23)
--- NOTE | 2022-03-04 12:35 | P.PN_ITS ---
Subjective Subjective: Creatinine went up. No significant shortness of breath. Vitals/I&O/Wt Last Vital Signs Temp 98.3 F 03/04/22 04:00 Pulse 109 H 03/04/22 12:00 Resp 18 03/04/22 12:00 BP 112/74 03/04/22 12:00 Pulse Ox 99 03/04/22 12:00 O2 Del Method 03/04/22 07:59 FiO2 6 03/03/22 12:59 03/03/22 03/04/22 03/04/22 22:59 06:59 14:59 Intake Total 502.9 / 1062.9 227.517 / 227.517 Output Total 925 / 1325 950 / 2275 Balance -422.1 / -262.1 -950 / -1212.1 227.517 / 227.517 Physical Exam Narrative: GENERAL: Patient is alert, awake and oriented x3. [] NECK: No jugular vein distension. [] HEENT: No cyanosis. No icterus. No pallor. [] HEART: Irregularly irregular, S1 and S2. Grade 4/6 systolic murmur LUNGS: Clear to auscultate bilaterally. [] CENTRAL NERVOUS SYSTEM: Grossly nonfocal. [] EXTREMITIES: Lower extremities with 1+ edema bilaterally. Pulses palpable in the lower extremities, both dorsalis pedis and posterior tibial. [] Data 03/04/22 01:00 03/04/22 01:00 A&P Assessment and plan (1) Mitral regurgitation: (2) HTN (hypertension): (3) Atrial fibrillation with rapid ventricular response: (4) Congestive heart failure: Plan Heart rate is still uncontrolled. Will uptitrate metoprolol to 100mg BID. Will add digoxin YONNY was performed on 03/03 that showed severe MR with flail posterior leaflet. Cardiac cath postponed because of creatinine has increased. We will recheck a nother BMP in the PM and if Cr normalizes, plan for right and left heart cath tomorrow. Continue heparin Thank you for involving us with care of this patient. We will continue to follow. Please call with questions. Attestations Medical Necessity Statement*: Care expected to cross 2 midnights. Coding Level of Care Code Acute Information Technology Associate for g Fwd Diagnoses Mitral regurgitation I34.0 HTN (hypertension) I10 Atrial fibrillation with rapid ventricular response I48.91 Congestive heart failure I50.9
--- NOTE | 2022-03-04 12:57 | PM.PN ---
Subjective Subjective: Seen this morning. Creatinine 1.3. Angiogram today is canceled due to ELAINE. Patient in good spirits. Sitting up in bed appearing comfortable. at bedside. Vitals/I&O/Wt Last Vital Signs Temp 98.3 F 03/04/22 04:00 Pulse 109 H 03/04/22 12:00 Resp 18 03/04/22 12:00 BP 112/74 03/04/22 12:00 Pulse Ox 99 03/04/22 12:00 O2 Del Method 03/04/22 07:59 FiO2 6 03/03/22 12:59 03/03/22 03/04/22 03/04/22 22:59 06:59 14:59 Intake Total 502.9 / 1062.9 467.517 / 467.517 Output Total 925 / 1325 950 / 2275 Balance -422.1 / -262.1 -950 / -1212.1 467.517 / 467.517 Physical Exam Narrative: NAD, at bedside, appears well EOMI, NC/AT Lungs clear to auscultation bilaterally no wheezes no rhonchi no crackles appreciated today. normal s1, s2, rate is normal. Irregularly irregular, abdomen soft, non tender, no guarding extermities, trace edema bilateral lower extremities neuro: non focal. Data 03/04/22 01:00 03/04/22 01:00 A&P Assessment and plan (1) Atrial fibrillation with rapid ventricular response: (2) HTN (hypertension): (3) Mitral regurgitation: (4) Heart failure: (5) Glaucoma: (6) Pleural effusion: (7) GERD (gastroesophageal reflux disease): Plan Afib w/ RVR HTN MR Glaucoma New onset HF, systolic most likely 2/2 to severe MR and rate related 2/2 to Afib with RVR B/L Pleural effusions GERD - Echo shows global hypokinesia, EF 45-50% and severe MR. - Trops negative. - EKG had no acute ischemic changes -Hold Lasix today. - Hold eliquis. Continue heparin drip. - A1c, lipid profile, tsh reviewed. T4 pending. - YONNY complete. See report attached. Patient does have severe mitral regurgitation. - Cardio consulted. - Protonix 40 daily - NPO at midnight tonight for potential angiogram in AM. - Metoprolol 75 BID - Cardio recs appreciated. ? Normal saline 40 cc/h. Full Code DVT PPX: On heparin drip Attestations Medical Necessity Statement*: Will cross > 2 midnight stay for management of Atrial fibrillation and new onset heart failure Coding Level of Care Code Acute [employer] Skills for Chg Fwd Diagnoses Atrial fibrillation with rapid ventricular response I48.91 HTN (hypertension) I10 Mitral regurgitation I34.0 Heart failure I50.9 Glaucoma H40.9 Pleural effusion J90 GERD (gastroesophageal reflux disease) K21.9
[2022-03-04] MEDS: sodium chloride 0.9% 1,000 ML 40 ML IV (13:28)
[2022-03-04 15:13] LABS: Partial Thromboplastin Time 43.9 SECONDS (23.9-36.7)
[2022-03-04 20:14] LABS: Anion Gap 13.9 (5-19); Blood Urea Nitrogen 24 mg/dL (8-23); Calcium 9.1 mg/dL (8.5-10.5); Carbon Dioxide 27 mmol/L (22-29); Chloride 101 mmol/L (98-107); Glomerular Filtration Rate 85.5 mL/min (90-130); Glucose 161 mg/dL (65-115); Osmolality Calculated 294 mOsm/kg (285-295); Potassium 3.9 mmol/L (3.5-5.1); Sodium 138 mmol/L (136-145)
[2022-03-04] MEDS: latanoprost 0.005% Op Soln 2.5 mL Btl 1 DROP EYE-BOTH (21:26)
[2022-03-05 00:11] VITALS: BP 109/88; PULSE 80; RESP 11; TEMP 36.5; O2SAT 100
[2022-03-05 01:49] LABS: Alanine Aminotransferase 23 U/L (0-41); Albumin Level 3.6 g/dL (3.5-5.2); Alkaline Phosphatase 77 U/L (40-130); Aspartate Amino Transferase 16 U/L (0-40); Blood Urea Nitrogen 23 mg/dL (8-23); Calcium 9.1 mg/dL (8.5-10.5); Carbon Dioxide 28 mmol/L (22-29); Chloride 102 mmol/L (98-107); Globulin 2.5 g/dL (1.3-4.6); Glomerular Filtration Rate 85.5 mL/min (90-130); Glucose 96 mg/dL (65-115); Osmolality Calculated 288 mOsm/kg (285-295); Sodium 137 mmol/L (136-145); Total Bilirubin 2.1 mg/dL (0.15-1.2); Total Protein 6.1 g/dL (6.6-8.7)
[2022-03-05 02:08] LABS: Partial Thromboplastin Time 81.5 SECONDS (23.9-36.7)
[2022-03-05 04:00] VITALS: BP 120/96; PULSE 98; RESP 15; TEMP 36.4; O2SAT 97
[2022-03-05] MEDS: heparin drip 25,000 UNIT/500 ML PREMIX 15 UNIT IV (04:00)
[2022-03-05 06:00] VITALS: PULSE 119
--- NOTE | 2022-03-05 06:00 | XACV_ITS ---
Exam Room: [facility] Ht: 178 cm Wt: 79 kg BSA: 1.99 m2 Gender: Male : 1960 Exam Priority: Routine Procedure(s): Procedure Description: Diagnostic procedure Procedure Description: Left Heart Catheterization Procedure Description: Coronary Angiography Procedure Description: Right heart catheterization Diagnostic Cath Status: Elective Diagnostic Findings * No significant disease noted in the Left Main, Left Anterior Descending, Right, or Circumflex coronary arteries. * INDICATION: Severe mitral regurgitation/ pre-op work up. * Right heart cath findings: RA pressure: 17/21/17mmhg RV Pressure: 48/18/17mmhg PCW: 25/26/23mmhg 50/30/37mmhg TP Cardiac output: 4 L/min Cardiac index: 2 PVR: 3.5 Wood units. Moderate mixed pulmonary hypertension.. * Coronary angiography shows right dominance. Conclusions 1. No significant disease noted in the Left Main, Left Anterior Descending, Right, or Circumflex coronary arteries. 2. Elevated right and left-sided cardiac pressures. 3. Low cardiac output. 4. Moderate mixed pulmonary hypertension. Recommendations * Patient will be referred to a tertiary care hospital for mitral valve repair/replacement. * Continue A. fib rate control and diuresis. * Close outpatient cardiology follow-up in 7 to 10 days. Interventional RX Recommendation: other cardiac therapy w/o CABG/PCI Diagnostic RX Recommendation: other cardiac therapy w/o CABG/PCI Pressures Phase:Rest AO : 125 / 17 ( 59 ) @ 7:08:00 AM 106 / 74 ( 84 ) @ 7:09:00 AM LV : 115 / 2 / 12 @ 7:08:00 AM 122 / 100 / 93 @ 7:09:00 AM 123 / 92 / 101 @ 7:09:00 AM RV : 48 / 18 / 17 @ 6:56:00 AM PA : 50 / 30 ( 37 ) @ 6:55:00 AM RA : a wave = 17 v wave = 21 mean = 17 @ 6:57:00 AM PCW : a wave = 25 v wave = 26 mean = 23 @ 6:54:00 AM O2 Content Phase:Rest PA : O2 Content O2: 57.3 @ 7:09:00 AM Saturations Phase:Rest AO : 91 @ 7:08:00 AM PA : 57 @ 7:09:00 AM Cardiac Output Phase:Rest Magdalena : 5 @ 7:48:36 AM Magdalena Cardiac Index: 2 @ 7:48:36 AM Flow Phase:Rest Qp : 5 @ 7:48:36 AM Qs : 5 @ 7:48:36 AM Clinical Evaluation EBL: 5mL-10mL Procedural Details Procedure Consent Obtained. Pre-Procedure Time Out. Identified patient by full name and date of as verbalized by the patient/guarantor. Does the consent match the physician's order: Yes. Accurate & Complete Informed Consent: Yes. Inpatient/Outpatient History & Physical on Chart: Yes. If H&P is completed, is and addenduem needed: No. Visualize and Verify Site with Patient/Guarantor: N/A. Relevant Radiology Images available: Yes. The risks, benefits, and alternatives of sedation and/or procedure were discussed by physician. The patient agrees to continue. Procedure started. [facility] Clinical Fraility Score: 3: Managing Well. Reports Analysis Manager Indications: Valvular Disease/Severe Mitral regurg. Chest Pain Symptom Assessment: Asymptomatic. Cardiovascular Instability: No. Correct patient, site and procedure confirmed by cath team. PERRLA. Strong, equal hand cargo inspector bilaterally. Lungs clear x 5 lobes. IV Site on Arrival: 20 gauge in the left forearm with NS infusing at 125ml/hr. IV Fluids: 0.9% NaCl at KVO. 600 mL infused prior to chemical laboratory tester. Pre Procedural Pulses: right dorsalis pedis was 2+. Pre Procedural Pulses: left dorsalis pedis was Doppled. Pre Procedural Pulses: bilateral radial was 3+. Patient on room air. right groin was prepped with chloroprep then draped in the usual sterile fashion. right radial was prepped with chloroprep then draped in the usual sterile fashion. Physician notified. Baseline sample Acquired. HR: 144 BPM. Patient's family unavailable. Equipment: 6F - Radial. Cardiac Cath Pack. ACIST Manifold Kit Model BT 2000. Heparinized Saline (2 units/mL), 1000 mL bag. Physician arrived. Physician scrubbed in. Immediate Pre-Procedure Time Out. Correct Patient: Yes; Correct Procedure: Yes; Correct Site: Yes; Correct Patient Position: Yes; Correct Supplies: Yes; Dried Flammable Prep: Yes; Blood Products Available: N/A;. Lidocaine 1% infiltrated to the right brachial. Wire in through the existing 20 g PIV in the right brachail vein. Existing 20 g PIV out over the wire. Salix in. Edward guidewire in through the swan to reposition. Edward wire out. Oximetry samples were obtained. Normal venous range: 60-85%. Normal arterial range: 95-100%. Pressure measurements obtained. ABG drawn and sent with respiratory therapy. Salix-Charis out. Moving to [facility]. Arterial access obtained. A 5 albanian TIG catheter in over the exchange J wire. Multiple views taken of left coronary artery. Exchange J wire in to reposition the TIG to the LV. Exchange wire out. EDP Sample taken: LV 115/2,12; HR: 111 BPM; SpO2: 94%. EDP Sample taken: LV 122/100,93; HR: 118 BPM; SpO2: 93%. TIG catheter redirected to the RCA. Multiple views taken of right coronary artery. Catheter removed over the exchange J wire. Dr. Arce scrubbed out. TR band placed. Hemostasis obtained. A Manual Compression was successful obtaining hemostatsis at the Right Brachial Vein insertion site. A TR Band was successful obtaining hemostatsis at the Right Radial artery insertion site. Post Procedure: Pulses reassessed and unchanged. PERRLA. Strong, equal hand cargo inspector bilaterally. No VTE prophylaxis required. Medication's Wasted: Nitro = 49.8 mg. Medication's Wasted: Heparin = 3500 units. Medication's Wasted: Other = Fentanyl 50 mcg. Total IV fluids: 100 mL. Post-op diagnosis: Normal coronaries/Severe Mitral Valve Regurg. Complications: none. Responsiveness - Normal response to verbal stimuli; alert and oriented, PERRLA. Estimated blood loss: 5mL-10mL. Airway - Unaffected, no intervention required; spontaneous ventilation. Circulation: W/N/L, pulses unchanged. Nausea/Vomiting: No. Procedure completed. Patient transferred by wheelchair to 1st floor. Vital chart was stopped. Access Site Site: Right Brachial Vein Sheath Size: 6 Fr Hemostasis Method: Manual Compression Hemostasis Success: Successful Site: Right Radial artery Sheath Size: 5 Fr Hemostasis Method: TR Band Hemostasis Success: Successful Procedure Medications Start: 6:49 AM Stop: 6:49 AM Medication: Lopressor (metoprolol) Amount: 5 mg Route: I.V. Start: 6:49 AM Stop: 6:49 AM Medication: Versed Amount: 1 mg Route: I.V. Start: 6:49 AM Stop: 6:49 AM Medication: Fentanyl Amount: 50 mcg Route: I.V. Start: 6:49 AM Stop: 6:49 AM Medication: Benadryl Amount: 25 mg Route: I.V. Start: 6:54 AM Stop: 6:54 AM Medication: Lopressor (metoprolol) Amount: 5 mg Route: I.V. Start: 7:03 AM Stop: 7:03 AM Medication: Versed Amount: 1 mg Route: I.V. Start: 7:04 AM Stop: 7:04 AM Medication: Heparin Amount: 2500 units Route: I.V. I, the attending physician, have reviewed and verified all procedure medications. Yes, all medications given per verbal order History/Risk Factors Hypertension: Yes Dyslipidemia: No Peripheral Arterial Disease (PAD): No Myocardial Infarction (WA): No Obesity: No Renal Disease: No Tobacco Use: Never Prior Interventions PCI: No CABG: No Valve Surgery: No Report Signatures Finalized by Antolin Arce MD on 03/10/2022 10:24 AM
[2022-03-05 07:34] LABS: Alveolar-Arterial Oxygen Gradi 4.7 mmHg (5-10); Alveolar-Arterial Oxygen Gradi 8.1 mmHg (5-10); Arterial Blood Gas Hematocrit 42.7 % (42-52); Arterial Blood Gas Hematocrit 47.2 % (42-52); Blood Gas Allen Test Pos; Blood Gas Operator Identificat WALCI; Blood Gas Operator Identificat glc; Blood Gas Sample Site Not specified; Blood Gas Sample Type Arterial; Carboxyhemoglobin 1.3 %THgb (0.4-20.1); Carboxyhemoglobin 1.4 %THgb (0.4-20.1); HGB O2 Sat 56.2 % (95-100); HGB O2 Sat 89.2 % (95-100); Methemoglobin 0.1 % (0.4-1.5); Methemoglobin 0.6 % (0.4-1.5); Total Hemoglobin 13.9 g/dL (14-18); Total Hemoglobin 15.4 g/dL (14-18)
--- NOTE | 2022-03-05 07:49 | PM.PN ---
Subjective Subjective: Patient is doing well. He underwent coronary angiogram that showed patent coronary arteries. Right and left sided cardiac pressures are elevated Vitals/I&O/Wt Last Vital Signs Temp 97.6 F 03/05/22 04:00 Pulse 119 H 03/05/22 06:00 Resp 15 03/05/22 04:00 BP 120/96 03/05/22 04:00 Pulse Ox 97 03/05/22 04:00 O2 Del Method 03/05/22 04:00 FiO2 6 03/03/22 12:59 03/04/22 03/05/22 03/05/22 22:59 06:59 14:59 Intake Total 478.767 / 946.284 646.417 / 1592.701 Output Total 500 / 500 Balance -21.233 / 446.284 646.417 / 1092.701 Physical Exam Narrative: GENERAL: Patient is alert, awake and oriented x3. [] NECK: No jugular vein distension. [] HEENT: No cyanosis. No icterus. No pallor. [] HEART: Irregularly irregular, S1 and S2. Grade 4/6 systolic murmur LUNGS: Clear to auscultate bilaterally. [] CENTRAL NERVOUS SYSTEM: Grossly nonfocal. [] EXTREMITIES: Lower extremities with no edema bilaterally. Pulses palpable in the lower extremities, both dorsalis pedis and posterior tibial. [] Data 03/04/22 01:00 03/05/22 01:15 A&P Assessment and plan (1) Mitral regurgitation: (2) HTN (hypertension): (3) Atrial fibrillation with rapid ventricular response: (4) Congestive heart failure: Plan Metoprolol uptitrated to 100 mg twice daily. We will load him with a digoxin today as his heart rate is elevated still.After second dose, patient can be discharged and put on digoxin 125mcg daily as oupatient. Right and left heart cath performed today. Coronary angiogram shows a patent coronary arteries. Right heart catheter demonstrated elevated pressures. Switch Lasix to p.o. Lasix 40 mg in a.m. and 20mg in PM. Continue Eliquis. ER warning symptoms discussed. We will refer patient for mitral valvular surgical procedure. Patient's preference is to go to [facility] in [facility] for that. Thank you for involving us with care of this patient. Patient is stable to be discharged from cardiology standpoint. Please call with questions. Attestations Medical Necessity Statement*: Care expected to cross 2 midnights. Coding Level of Care Code Acute Camera Systems Engineer for Yohana Lee Diagnoses Mitral regurgitation I34.0 HTN (hypertension) I10 Atrial fibrillation with rapid ventricular response I48.91 Congestive heart failure I50.9
--- NOTE | 2022-03-05 08:40 | W.PM.OPSUD ---
Surgery/Procedure H&P Update DATE OF PROCEDURE: March 05, 2022 DATE H&P PERFORMED: 03/02/22 H&P UPDATE INFORMATION: I have reviewed H&P completed within last 30 days, I have examined patient prior to procedure and No changes to prior documentation PREOP DIAGNOSIS: Severe mitral regurgitation PRIMARY INDICATION FOR PROCEDURE: Severe mitral regurgitation PLANNED PROCEDURE: Operation Date: 03/05/22 Proposed Procedures p Cardiac Catheterization(Left)+ Right heart catheterization - Antolin Arce M.D Possible percutaneous coronary intervention PATIENT REASSESSED PRIOR TO SEDATION, WITH NO CHANGE NOTED: Yes PHYSICAL EXAM: alert, oriented x 3 and clear to auscultation bilaterally OTHER PERTINENT EXAM FINDINGS: Irregularly irregular, tachycardia AIRWAY EVAL/ANESTHESIA PLAN: normal airway, ASA III, Local Anesthesia, Risks, benefits & alternatives of sedation and/or procedure discussed and Patient agrees to continue as planned
[2022-03-05] MEDS: digoxin 250 mcg/ml INJ 2 mL 500 MCG IVP (09:23)
[2022-03-05] MEDS: metoprolol tartrate 50 mg Tablet 100 MG PO (09:24)
[2022-03-05 09:41] LABS: Partial Thromboplastin Time 57.2 SECONDS (23.9-36.7)
[2022-03-05] MEDS: brimonidine 0.2% Op Soln 5 mL Btl 1 DROP EYE-BOTH (09:49)
[2022-03-05] MEDS: dorzolamide/timolol Op Soln 10 mL Btl 1 DROP EYE-BOTH (09:49)
--- NOTE | 2022-03-05 11:38 | PC.NURSE ---
TR band removed at 1132 am. No bleeding / hematoma noted.
--- NOTE | 2022-03-05 13:01 | P.DS_ITS ---
Discharge Providers Date of Admission: 03/01/22 17:02 Date of Discharge: March 05, 2022 Attending Provider at Admission: Edwige Helm MD Attending Provider at Discharge: Edwige Helm MD Primary Care Provider: Ronna Campuzano DO Diagnoses at Discharge Discharge Diagnosis (1) Mitral regurgitation: Status: Acute (2) HTN (hypertension): Status: Acute (3) Atrial fibrillation with rapid ventricular response: Status: Acute (4) Congestive heart failure: Status: Acute Reason for Visit Reason for Visit: Dr. Campuzano sent for heart issues Brief History: Tomás Davis is a 61 year old male with pmh of mitral regurg (years ago), htn, glaucoma and recently diagnosed atrial fibrillation 10 days prior by PCP presents to ER after being sent by primary. He says he was asked to go to hospital 10 days ago but he decided not to come in and to try medication at home that was prescribed (metoprolol and eliquis). For last 2 weeks he has been having orthopnea and using more pillows to sleep. When he lays flat, its harder to breath he says. He was diagnosed with MR years ago but says he was told it was mild at the time. is present at bedside. Legs have been swelling up lately as well. He has lot of acid reflux for which he takes TUMS. Tums resolves the issue. Denies chest pain, sob on exertion, abdominal pain, n/v/d at this time. ED course. On arrival EKG shows afib with RVR, rate 140's. Given cardizem pushes and started on drip. CXR shows b/l pleural effusions Hospital Course Hospital Course Patient was admitted for atrial fibrillation with RVR. Echo showed worsening mitral regurgitation with posterior valve impairment. Metoprolol was uptitrated to 100 twice daily. He was loaded with digoxin and discharged home in stable condition. He was placed on Lasix 40 in the morning and 20 in the evening. Patient also had cardiac cath done during hospital stay which did not show any ischemic disease. ER warning symptoms were discussed with the patient and he was given referral for mitral valve surgical procedure at [facility] in [place]. All of the above was discussed with the patient and his in detail. Patient was also started on Eliquis 5 twice daily. Patient was discharged home in stable condition to follow-up with cardiology and CT surgery. Physical Exam Narrative: NAD, at bedside, appears well EOMI, NC/AT Lungs clear to auscultation bilaterally no wheezes no rhonchi no crackles appreciated today. normal s1, s2, rate is normal. Irregularly irregular, abdomen soft, non tender, no guarding extermities, trace edema bilateral lower extremities neuro: non focal. Discharge Data Studies Completed and Pending Completed Studies During Hospitalization Category Date Time Status XR chest 1V portable [id number] Stat Exams 03/01/22 11:19 Completed CV. echo complete* [id number] Urgent Ultrasound 03/01/22 16:54 Completed Pending at discharge Category Date Time Status ROTARY CUTTER FEEDER request for service Routine Exams 03/05/22 06:00 Taken Platelet Count Q2D Lab 03/06/22 04:00 Ordered US YONNY [CV. echo transesophageal [id number]] Routine Ultrasound 03/03/22 11:09 Taken Radiology Impressions Chest X-Ray 03/01/22 11:19 IMPRESSION: 1. Cardiac enlargement and small bibasal pleural effusions. 2. No consolidating infiltrates. Laboratory Results WBC 6.6 10^3/uL (4.0-10.0) 03/03/22 03:59 RBC 4.68 10^6/uL (4.1-5.3) 03/03/22 03:59 Hgb 14.0 g/dL (11.7-16.6) 03/03/22 03:59 Hct 42.8 % (42.0-52.0) 03/03/22 03:59 MCV 91.5 fl (80-94) 03/03/22 03:59 MCH 29.9 pg (28.0-34.0) 03/03/22 03:59 MCHC 32.7 g/dL (30.0-36.0) 03/03/22 03:59 RDW 14.6 % (12.1-15.1) 03/03/22 03:59 Plt Count 116 10^3/cmm (130-400) L 03/04/22 01:00 MPV 13.1 fL (7.4-10.4) H 03/03/22 03:59 Neut % (Auto) 64.2 % 03/03/22 03:59 Lymph % (Auto) 19.4 % 03/03/22 03:59 Garrard % (Auto) 11.7 % 03/03/22 03:59 Eos % (Auto) 3.8 % 03/03/22 03:59 Baso % (Auto) 0.6 % 03/03/22 03:59 Neut # (Auto) 4.26 10^3/uL (1.8-7.7) 03/03/22 03:59 Lymph # (Auto) 1.3 10^3/uL (0.8-4.8) 03/03/22 03:59 Garrard # (Auto) 0.8 10^3/uL (0.2-0.9) 03/03/22 03:59 Eos # (Auto) 0.3 10^3/uL (0.0-0.8) 03/03/22 03:59 Baso # (Auto) 0.0 10^3/uL (0.0-0.1) 03/03/22 03:59 Nucleated RBC % (auto) 0 % 03/03/22 03:59 Nucleated RBCs # 0.0 /100WBC 03/03/22 03:59 APTT 57.2 SECONDS (23.9-36.7) H 03/05/22 08:55 Specimen Type Arterial 03/05/22 07:00 Specimen Type Arterial 03/05/22 07:00 Sample Site Not specified 03/05/22 07:00 Sample Site Not specified 03/05/22 07:00 Richar Test Pos 03/05/22 07:00 Richar Test Pos 03/05/22 07:00 A-a O2 Gradient 4.7 mmHg (5-10) L 03/05/22 07:00 A-a O2 Gradient 8.1 mmHg (5-10) 03/05/22 07:00 Hematocrit 42.7 % (42-52) 03/05/22 07:00 Hematocrit 47.2 % (42-52) 03/05/22 07:00 Hgb O2 Saturation 56.2 % (95-100) L 03/05/22 07:00 Hgb O2 Saturation 89.2 % (95-100) L 03/05/22 07:00 Carboxyhemoglobin 1.3 %THgb (0.4-20.1) 03/05/22 07:00 Carboxyhemoglobin 1.4 %THgb (0.4-20.1) 03/05/22 07:00 Methemoglobin 0.1 % (0.4-1.5) L 03/05/22 07:00 Methemoglobin 0.6 % (0.4-1.5) 03/05/22 07:00 Total Hemoglobin 13.9 g/dL (14-18) L 03/05/22 07:00 Total Hemoglobin 15.4 g/dL (14-18) 03/05/22 07:00 O2 Delivery Device Not Reportable 03/05/22 07:00 O2 Delivery Device Not Reportable 03/05/22 07:00 Product Safety Engineer ID [email or web address] 03/05/22 07:00 Product Safety Engineer ID [email or web address] 03/05/22 07:00 Sodium 137 mmol/L (136-145) 03/05/22 01:15 Potassium 4.0 mmol/L (3.5-5.1) 03/05/22 01:15 Chloride 102 mmol/L (98-107) 03/05/22 01:15 Carbon Dioxide 28 mmol/L (22-29) 03/05/22 01:15 Anion Gap 11.0 (5-19) 03/05/22 01:15 BUN 23 mg/dL (8-23) 03/05/22 01:15 Creatinine 0.9 mg/dL (0.7-1.2) 03/05/22 01:15 GFR Calculation 85.5 mL/min (90-130) L 03/05/22 01:15 Glucose 96 mg/dL (65-115) 03/05/22 01:15 Estimat Average Glucose 108 03/01/22 22:44 Hemoglobin A1c 5.4 % (4.0-6.0) 03/01/22 22:44 Calculated Osmolality 288 mOsm/kg (285-295) 03/05/22 01:15 Calcium 9.1 mg/dL (8.5-10.5) 03/05/22 01:15 Magnesium 2.0 mg/dL (1.7-2.3) 03/04/22 01:00 Total Bilirubin 2.1 mg/dL (0.15-1.2) H 03/05/22 01:15 AST 16 U/L (0-40) 03/05/22 01:15 ALT 23 U/L (0-41) 03/05/22 01:15 Alkaline Phosphatase 77 U/L (40-130) 03/05/22 01:15 Troponin T Baseline 30 ng/L (0-15) H 03/01/22 22:44 Troponin T 120 Minute 32.00 ng/L (0-15) H 03/02/22 01:02 Delta Troponin T 2.00 ABS# (0-10) 03/02/22 01:02 Troponin T Hi Sens 6Hr 27.77 ng/L (0-15) H 03/02/22 04:25 Troponin T Hi Sens 6Hr Delta -2.23 ng/L (0-12) L 03/02/22 04:25 NT-Pro-B Natriuret Pep 5664 pg/mL (0-125) H 03/01/22 11:11 Total Protein 6.1 g/dL (6.6-8.7) L 03/05/22 01:15 Albumin 3.6 g/dL (3.5-5.2) 03/05/22 01:15 Globulin 2.5 g/dL (1.3-4.6) 03/05/22 01:15 Triglycerides 75 mg/dL (0-150) 03/01/22 11:11 Cholesterol 83 mg/dL (0-200) 03/01/22 11:11 LDL Cholesterol, Calc 18 mg/dL (50-129) L 03/01/22 11:11 HDL Cholesterol 50 mg/dL (60-100) L 03/01/22 11:11 LDL/HDL Ratio 0.36 RATIO (0.00-3.22) 03/01/22 11:11 Cholesterol/HDL Ratio 1.66 mg/dL (1.0-5.00) 03/01/22 11:11 Procalcitonin 0.11 ng/mL (0-0.5) 03/01/22 11:11 TSH 5.32 uIU/mL (0.27-4.20) H 03/01/22 11:11 TSH Cancelled 03/01/22 11:11 Free T4 1.21 ng/dL (0.82-1.77) 03/01/22 22:44 Vitals Last Vital Signs Temp 97.6 F 03/05/22 04:00 Pulse 119 H 03/05/22 06:00 Resp 15 03/05/22 04:00 BP 120/96 03/05/22 04:00 Pulse Ox 97 03/05/22 04:00 O2 Del Method 03/05/22 04:00 FiO2 6 03/03/22 12:59 Discharge Plan Discharge Patient Disposition: Home Condition: Stable Prescriptions: New metoprolol tartrate 50 mg Tablet 100 mg PO BID 30 Days Qty: 120 0RF digoxin 125 mcg (0.125 mg) tablet 125 mcg PO DAILY 30 Days Qty: 30 0RF Lasix 40 mg tablet 40 mg PO QAM Qty: 30 0RF Lasix 20 mg tablet 20 mg PO QPM Qty: 30 0RF potassium chloride 10 mEq capsule, extended release 10 meq PO DAILY Qty: 30 0RF Continued latanoprost 0.005 % drops 1 drp ophthalmic (eye) BEDTIME brimonidine 0.2 % drops 1 drp ophthalmic (eye) BID dorzolamide-timolol 22.3-6.8 mg/mL drops 1 drp ophthalmic (eye) BID Eliquis 5 mg Tablet 5 mg PO BID Discontinued lisinopril 10 mg tablet 10 mg PO DAILY metoprolol tartrate 25 mg tablet 25 mg PO BID Discharge Orders: Discharge Order (Routine); Ordered 03/05/22 Ordered By: Edwige Helm Other Ambulatory Orders: Basic Metabolic Panel (Q7D) Timeframe: [id number] Facility: [facility] - Location: Lab - Main Lab Ordered By: Edwige Helm Basic Metabolic Panel (Q7D) Timeframe: [id number] Facility: [facility] - Location: Lab - Main Lab Ordered By: Edwige Helm Basic Metabolic Panel (Q7D) Timeframe: [id number] Facility: [facility] - Location: Lab - Main Lab Ordered By: Edwige Helm Referrals: Elmo Riggs [Other] - 2 weeks (Follow up in 2-4 weeks with cardiothoracic surgery for your severe mitral valve regurgitation) Antolin Arce M.D [Physician] - 1 month ([facility] will contact you to schedule an appointment in 1 month. If you hve not heard from them by Monday please call [phone].) Ronna Campuzano DO [Primary Care Provider] - 4-7 days ([facility] will contact you to schedule a follow up in 4-7 days. If you havent heard from them please call [phone].) Ilda John FNP [Nurse Practitioner] - 7-10 days ([facility] will contact you to schedule an appointment in 4-7 days. If you hve not heard from them by Monday please call [phone].) Discharge Diet: Cardiac Discharge Activity: Increase activity as tolerated Activity Restrictions/Additional Instructions: Follow up as directed with PCP, cardiology, cardiothoracic surgery. Please have your labs rechecked as advised. Please return to ER if you experience worsening symptoms or develop any new symptoms. Discharge Attestations Time Spent in Discharge Care*: greater than 30 min Quality Metrics Clinical Quality Measures [ No reported AMI, CVA or VTE this stay] Coding Level of Care Code Acute Chg FW DC note Diagnoses Mitral regurgitation I34.0 HTN (hypertension) I10 Atrial fibrillation with rapid ventricular response I48.91 Congestive heart failure I50.9
[2022-03-05] MEDS: digoxin 250 mcg/ml INJ 2 mL IVP (15:22)
[2022-03-05 16:04] VITALS: PULSE 119
== END 2022-03-05 16:13 | disposition home or self-care (01) | DRG 286 ==
LOC: ER 16:01 → CSU 17:02
PROVIDERS: Internal Medicine; Admitting Provider Internal Medicine; Emergency Provider Emergency Medicine; PCP Family Medicine; Visit Provider Internal Medicine
PROC: (CPT 93312; principal; 2022-03-03 12:30)
DX: I48.91 Unspecified atrial fibrillation (principal); I50.21 Acute systolic (congestive) heart failure; N17.9 Acute kidney failure, unspecified; I34.0 Nonrheumatic mitral (valve) insufficiency; I11.0 Hypertensive heart disease with heart failure; H40.9 Unspecified glaucoma; K21.9 Gastro-esophageal reflux disease without esophagitis; Z79.01 Long term (current) use of anticoagulants
CPT/HCPCS: 36415; 71045; 80048; 80053; 80061; 82810; 83036; 83735; 83880; 84145; 84439; 84443; 84484; 85025; 85049; 85730; 93005; 93306; 93312; 93320; 93325; 93460; 96365; 96375; 96376; 99152; 99153; 99285; C1751; C1769; C1887; C1894; J1160; J1200; J1644; J1940; J2060; J2250; J3010; J3475; J3490; J7030; Q9967

== ENCOUNTER → 2022-03-22 14:44 | Outpatient (BNVA) | payer BC, SELFPAY | PROVIDERS: PCP Family Medicine; Visit Provider Nurse Practitioner Family | DX: I48.91 Unspecified atrial fibrillation (principal); I34.0 Nonrheumatic mitral (valve) insufficiency | CPT/HCPCS: 80162 ==

== ENCOUNTER → 2022-10-12 15:57 | Outpatient (BNVA) | payer BC, MEDICAID, SELFPAY | PROVIDERS: PCP Family Medicine; Visit Provider Nurse Practitioner Family | DX: I48.91 Unspecified atrial fibrillation (principal); I47.1 Supraventricular tachycardia; I11.0 Hypertensive heart disease with heart failure; I50.9 Heart failure, unspecified | CPT/HCPCS: 93005 ==

== ENCOUNTER 2023-04-05 12:56 | Outpatient (CLI) | payer BC, MEDICAID, SELFPAY ==
--- NOTE | 2023-04-05 13:30 | USCV_ITS ---
Tomás Davis Age: 62 Gender: M : 1960 Exam Date: 04/05/2023 13:20 Ordering Phys: Antolin Arce M.D ([email or web address]) Technologist: VELMA [place] [facility] [place]: CHEST PAIN/ SHORTNESS OF BREATH/ MITRAL VALVE RING PLACED BP: 156 / 87 HR: 62 Rhythm: Sinus Technical Quality: Adequate MEASUREMENTS (Male / Female) Normal Values 2D ECHO LVOT Diameter 2.0 cm LV Ejection Fraction MOD 2C 64.2 % LV Ejection Fraction 2C AL 63.8 % LA Diameter 3.1 cm LA Width 4.1 cm LA Height 5.3 cm RA Width 4.0 cm RA Height 4.9 cm Aorta at Sinotubular Diameter 2.8 cm IVC Diameter 1.7 cm M-MODE Aortic Annulus Diameter 4.0 cm LA Ao Ratio MM 0.7 MV E Point Septal Separation 0.6 cm DOPPLER AV Peak Velocity 131.0 cm/s LVOT Peak Velocity 103.0 cm/s AV Area Cont Eq vti 2.5 cm squared AV Area Cont Eq pk 2.5 cm squared MV Peak Velocity 161.0 cm/s MV Area PHT 4.6 cm squared Mitral E to A Ratio 2.4 MV E' Velocity 94.5 cm/s Mitral E to MV E' Ratio 20.8 Mitral E to LV E' Lateral Ratio 17.2 Mitral E to LV E' Septal Ratio 26.7 TR Peak Velocity 269.8 cm/s TR Peak Gradient 29.1 mmHg TR Mean Velocity 217.6 cm/s TR Mean Gradient 19.9 mmHg TR Velocity Time Integral 103.4 cm TV Peak E Velocity 41.0 cm/s Right Atrial Pressure 3.0 mmHg Pulmonary Artery Systolic Pressu 32.1 mmHg PV Peak Velocity 103.0 cm/s RV Acceleration Time 0.1 s RV Ejection Time 0.3 s RV AcT/ET 0.3 FINDINGS Left Ventricle LV systolic function is normal with EF of 50 to 55%. No regional wall motion normalities are seen. Right Ventricle RV is mildly hypokinetic. Right Atrium Normal in size Left Atrium Normal in size Mitral Valve Mitral annuloplasty ring seen. Mild mitral regurgitation. No significant stenosis. Aortic Valve Structurally normal aortic valve. No significant stenosis. Mild aortic regurgitation. Tricuspid Valve Mild tricuspid regurgitation. Pulmonary artery systolic pressure is normal. Pulmonic Valve Mild to moderate pulmonic regurgitation. Pericardium Normal Aorta Normal in size IVC Appears to be normal CONCLUSIONS LV systolic function is normal with EF of 50 to 55%. RV is mildly hypokinetic Mitral annuloplasty ring is seen. Mild mitral regurgitation. Mild aortic regurgitation Mild tricuspid regurgitation Mild to moderate pulmonic regurgitation Compared to prior echocardiogram from 2021, RV function is slightly reduced and patient has mild aortic regurgitation now. Also mitral annuloplasty ring is noted with significant improvement of mitral regurgitation. Antolin Arce MD (Electronically Signed) Final Date: 14 April 2023 15:44 S
== END 2023-04-05 12:57 | disposition home or self-care (01) ==
LOC: RAD 12:57
PROVIDERS: PCP Family Medicine; Visit Provider Internal Medicine
DX: I08.8 Other rheumatic multiple valve diseases (principal); Z98.890 Other specified postprocedural states
CPT/HCPCS: 93306

== ENCOUNTER 2023-04-26 05:33 | Day surgery (SDC) | payer BC, MEDICAID, SELFPAY ==
[2023-04-26 06:00] VITALS: BP 161/107; PULSE 64; RESP 18; TEMP 36.2; O2SAT 97; BMI 25.1
[2023-04-26] MEDS: sodium chloride 0.9% 1,000 ML 30 ML IV (06:10)
--- NOTE | 2023-04-26 06:55 | ANES.PREANE2 ---
Pre-Anesthetic Assessment Height/Weight: Height 1.78 m Weight 79.379 kg Temp Pulse Resp BP Pulse Ox O2 Del Method 97.1 F L 64 18 161/107 97 Room Air 04/26/23 06:00 04/26/23 06:00 04/26/23 06:00 04/26/23 06:00 04/26/23 06:00 04/26/23 06:00 Preop Diagnosis: screening Operation Date: 04/26/23 07:00 Proposed Procedures p [id number] colonoscopy G0121 colon screen a risk Z12.11(Not Applicable) - Jackson Singh, DO Was Beta Prem taken within 24 hours: Yes Was Clonidine taken within 24 hours: N/A Last intake: Intake Last Liquid Date 04/25/23 Last Liquid Time 23:00 Last Solid Date 04/24/23 Last Solid Time 23:30 Social No alcohol and No tobacco Exam alert, oriented x 3, clear to auscultation bilaterally and regular rate & rhythm Airway Submandibular: within normal limits Cervical ROM: within normal limits Mallampati: Class II History/ROS No significant history except as noted Pulmonary None reported CV/HEM Atrial Fibrillation, Congestive Heart Failure and Hypertension valve replced 2022. saw [facility] a few weeks ago Chronic Renal Insufficiency Hepatic None reported GI Gastroesophageal Reflux Disease Metabolic None reported Musc/skel None reported Neuropsych None reported Anesthetic Plan ASA status: 3 Anesthesia: Anesthesia Evaluation and General Risk of > 500 ml blood loss (7ml/kg in children): Yes, adequate IV access and fluids planned Medications/Allergies Home Medications Medication Instructions Recorded Confirmed Last Taken Type dorzolamide 22.3 mg-timolol 6.8 1 drp ophthalmic (eye) BID 03/01/22 04/26/23 04/25/23 History mg/mL eye drops latanoprost 0.005 % eye drops 1 drp ophthalmic (eye) BEDTIME 03/01/22 04/26/23 04/25/23 History amiodarone 400 mg tablet 200 mg PO DAILY 07/18/22 04/26/23 04/26/23 History aspirin 81 mg chewable tablet 81 mg PO DAILY 07/18/22 04/26/23 04/26/23 History metoprolol succinate 25 mg 25 mg PO DAILY 07/18/22 04/26/23 04/25/23 History tablet,extended release 24 hr multivitamin 1 tab PO DAILY 07/18/22 04/26/23 04/25/23 History halnusoh-pqtf-ES-calcium polyethylene glycol 3350 17 gram 17 g PO DAILY PRN Constipation 07/18/22 04/26/23 Unknown History oral powder packet (Miralax) tamsulosin 0.4 mg capsule (Flomax) 0.4 mg PO DAILY 07/18/22 04/26/23 04/25/23 History apixaban 5 mg tablet (Eliquis) 2.5 mg PO BID 10/12/22 04/26/23 04/24/23 History lisinopril 40 mg tablet 40 mg PO DAILY #90 tabs 03/16/23 04/26/23 04/25/23 Rx sildenafil 50 mg tablet 50 mg PO DAILY PRN sexual activity 03/16/23 04/26/23 04/17/23 Rx #25 tabs Allergies Allergy/AdvReac Type Severity Reaction Status Date / Time No Known Allergies Allergy Verified 04/26/23 05:56 Current Medications Generic Name Dose Route Start Last Admin Trade Name Freq PRN Reason Stop Dose Admin Sodium Chloride 1,000 mls @ 30 mls/hr 04/26/23 06:00 04/26/23 06:10 Sodium Chloride 0.9% IV 04/27/23 05:59 30 mls/hr .Q24H LA NENA Administration PFSH Anesthesia Surgical History S/P Maze operation for atrial fibrillation H/O mitral valve repair Family History Denies family history of Anesthesia complication Social History Smoking and tobacco/nicotine status: never used tobacco/nicotine Alcohol intake: never Data Anesthesia Cardiac Studies: Echocardiogram 04/05/23 Transesophageal Echocardiogram 03/03/22
--- NOTE | 2023-04-26 07:00 | W.PM.OPSUD ---
Surgery/Procedure H&P Update DATE OF PROCEDURE: April 26, 2023 DATE H&P PERFORMED: 03/29/23 H&P UPDATE INFORMATION: I have reviewed H&P completed within last 30 days, I have examined patient prior to procedure and No changes to prior documentation PREOP DIAGNOSIS: screening PLANNED PROCEDURE: Operation Date: 04/26/23 07:00 Proposed Procedures p [id number] colonoscopy G0121 colon screen a risk Z12.11(Not Applicable) - Jackson Singh, DO
[2023-04-26 07:30] VITALS: BP 99/59; PULSE 57; RESP 16; TEMP 36.1; O2SAT 98
[2023-04-26 07:42] VITALS: BP 103/61; PULSE 54; RESP 18; O2SAT 98
[2023-04-26 08:04] VITALS: BP 124/74; PULSE 55; RESP 18; O2SAT 100
--- NOTE | 2023-04-26 14:46 | ANE.PACU2 ---
Inpatient post-anesthesia follow up: Airway intact: Yes Vital signs: Temperature 97 F Pulse Rate 55 Respiratory Rate 18 Blood Pressure 124/74 Pulse Oximetry 100 Oxygen Delivery Me thod Room Air Oxygen Flow Rate Fraction of Inspir ed Oxygen Hydration adequate: Yes Nausea and vomiting: No Pain level: 2 Mental status: Baseline
== END 2023-04-26 08:19 | disposition home or self-care (01) ==
PROVIDERS: PCP Family Medicine; Visit Provider Surgery
PROC: 0DJD8ZZ Inspection of Lower Intestinal Tract, Via Natural or Artificial Opening Endoscopic (ICD-10-PCS; CPT 45378; principal; 2023-04-26 07:00)
DX: Z12.11 Encounter for screening for malignant neoplasm of colon (principal); K63.5 Polyp of colon; I48.91 Unspecified atrial fibrillation; I11.0 Hypertensive heart disease with heart failure; I50.9 Heart failure, unspecified; K21.9 Gastro-esophageal reflux disease without esophagitis; Z79.82 Long term (current) use of aspirin
CPT/HCPCS: 45385; J2704; J7030

== ENCOUNTER → 2023-08-01 12:35 | Outpatient (BNVA) | payer BC, MEDICAID, SELFPAY | PROVIDERS: PCP Family Medicine; Visit Provider Nurse Practitioner Family | DX: I48.91 Unspecified atrial fibrillation (principal); I10 Essential (primary) hypertension | CPT/HCPCS: 36415; 80048; 85025 ==

== ENCOUNTER 2023-08-15 08:51 | Oncology outpatient (recurring) (ONCR) | payer BC, MEDICAID, SELFPAY ==
[2023-08-15 10:54] LABS: Basophils % 0.6 %; Eosinophils # 0.2 10^3/uL (0.0-0.8); Eosinophils % 4.5 %; Hematocrit 40.4 % (37-53); Lymphocytes # 0.9 10^3/uL (0.8-4.8); Lymphocytes % 17.6 %; Mean Corpuscular HGB Conc 34.4 g/dL (30-55); Mean Corpuscular Hemoglobin 30.3 pg (27-33); Mean Corpuscular Volume 88.2 fl (82-101); Monocytes # 0.6 10^3/uL (0.2-0.9); Neutrophils # 3.33 10^3/uL (1.8-7.7); Neutrophils % 65.7 %; Nucleated Red Blood Cells % 0 %; Platelet Count 124 10^3/cmm (157-399); Red Blood Count 4.58 10^6/uL (3.85-5.65); Red Cell Distribution Width 14.1 % (12.1-15.1); White Blood Count 5.07 10^3/uL (3.29-11.43)
[2023-08-15 11:10] LABS: INR 1.15 (0.8-1.2)
[2023-08-15 11:11] LABS: Partial Thromboplastin Time 29.3 SECONDS (23.9-36.7)
[2023-08-15 11:34] LABS: LAB Peripheral Smear Sent for Review
[2023-08-15 11:43] LABS: Alanine Aminotransferase 19 U/L (0-41); Albumin Level 4.4 g/dL (3.5-5.2); Alkaline Phosphatase 79 U/L (40-130); Aspartate Amino Transferase 16 U/L (0-40); Blood Urea Nitrogen 15 mg/dL (8-23); Calcium 8.3 mg/dL (8.5-10.5); Carbon Dioxide 22 mmol/L (22-29); Chloride 107 mmol/L (98-107); Creatinine Clr Calc Pharmacy 92.3629; Globulin 2.9 g/dL (1.3-4.6); Glomerular Filtration Rate 85.2 mL/min (90-130); Glucose 100 mg/dL (65-115); Lactate Dehydrogenase 202 U/L (135-225); Osmolality Calculated 289 mOsm/kg (285-295); Sodium 139 mmol/L (136-145); Total Bilirubin 2.1 mg/dL (0.15-1.2); Total Protein 7.3 g/dL (6.6-8.7); Vitamin B12 347 pg/mL (232-1245)
[2023-08-15 11:53] LABS: Folate Level 6.4 ng/mL (4.5-32.2)
[2023-08-15 13:37] LABS: Free T4 Free Thyroxine 0.81 ng/dL (0.82-1.77)
[2023-08-15 14:24] LABS: Hepatitis A Antibody IgM Non-Reactive (Nonreactive); Hepatitis B Core AB, Total Non-Reactive (Nonreactive); Hepatitis B Surface Antigen Non-Reactive (Nonreactive); Hepatitis C Virus Antibody Non-Reactive (Nonreactive)
[2023-08-15 14:57] LABS: Hepatitis B Surface AB 8.4 (11.5-1000)
[2023-08-16 14:57] LABS: 25 Hydroxy Vitamin D 32 ng/mL (30-100)
[2023-08-16 15:50] LABS: Anti-Nuclear Antibody Screen NEGATIVE (NEGATIVE)
[2023-08-19 10:21] LABS: Methylmalonic Acid 186 nmol/L (87-318)
--- NOTE | 2023-08-31 07:15 | US_ITS ---
WS: [id number] Exam: US abdomen complete* [id number] Date/Time of Exam: 08/31/2023 7:02 AM Reason For Exam: thrombocytopenia There are multiple stones in the gallbladder. No sign of acute cholecystitis. No para cholecystic flu id. The common bile duct measures 4 mm in greatest diameter. The liver is unremarkable and measures 1 4.2 cm in greatest dimension. The pancreas is unremarkable as visualized. Phasic flow noted in the IV C. The abdominal aorta is normal in caliber. The spleen appears normal and measures 11 cm in greatest dimension. A 1.7 cm cyst is seen at the upper pole of the RIGHT kidney. The RIGHT kidney is otherwis e normal in appearance and measures 10.2 x 5.7 x 5.1 cm. Normal LEFT kidney noted measuring 10.1 x 5 x 5 cm. RIGHT renal cortex measures 1.4 cm in greatest thickness, the LEFT 1.3 cm. No abdominal mass or free fluid. US/US abdomen complete* [id number] IMPRESSION: 1. Multiple stones in the gallbladder. No sign of acute cholecystitis. No sign of biliary dilatation. 2. 1.7 cm cyst at the upper pole the RIGHT kidney. There were no other abnormal findings in the abdomen.
== END 2023-09-10 23:59 | disposition home or self-care (01) ==
LOC: RAD 08-31 06:58 → ONCMED 08-31 17:21
PROVIDERS: PCP Family Medicine; Visit Provider Internal Medicine
DX: D69.6 Thrombocytopenia, unspecified (principal); K80.20 Calculus of gallbladder without cholecystitis without obstruction; N28.1 Cyst of kidney, acquired
CPT/HCPCS: 36415; 76700; 80053; 80503; 82247; 82248; 82306; 82607; 82746; 83615; 83921; 84439; 84443; 85025; 85610; 85730; 86038; 86705; 86706; 86709; 86803; 87340

== ENCOUNTER 2023-11-16 12:07 | Oncology outpatient (recurring) (ONCR) | payer BC, MEDICAID, SELFPAY ==
[2023-11-16 13:21] LABS: Basophils # 0.1 10^3/uL (0.0-0.1); Eosinophils # 0.2 10^3/uL (0.0-0.8); Eosinophils % 4.9 %; Lymphocytes # 0.9 10^3/uL (0.8-4.8); Lymphocytes % 19.2 %; Mean Corpuscular HGB Conc 34.8 g/dL (30-55); Mean Corpuscular Hemoglobin 30.8 pg (27-33); Mean Corpuscular Volume 88.5 fl (82-101); Mean Platelet Volume 11.6 fL (7.4-10.4); Monocytes # 0.4 10^3/uL (0.2-0.9); Monocytes % 8.6 %; Neutrophils # 3.22 10^3/uL (1.8-7.7); Neutrophils % 65.7 %; Nucleated Red Blood Cells % 0 %; Platelet Count 119 10^3/cmm (157-399); Red Blood Count 4.52 10^6/uL (3.85-5.65)
[2023-11-16 13:40] LABS: Alanine Aminotransferase 17 U/L (0-41); Albumin Level 4.2 g/dL (3.5-5.2); Alkaline Phosphatase 70 U/L (40-130); Aspartate Amino Transferase 16 U/L (0-40); Blood Urea Nitrogen 15 mg/dL (8-23); Calcium 8.3 mg/dL (8.5-10.5); Carbon Dioxide 22 mmol/L (22-29); Chloride 109 mmol/L (98-107); Globulin 2.6 g/dL (1.3-4.6); Glomerular Filtration Rate 75.2 mL/min (90-130); Glucose 112 mg/dL (65-115); Osmolality Calculated 294 mOsm/kg (285-295); Sodium 141 mmol/L (136-145); Total Bilirubin 1.8 mg/dL (0.15-1.2); Total Protein 6.8 g/dL (6.6-8.7)
[2023-11-16 15:03] LABS: Free T4 Free Thyroxine 1.34 ng/dL (0.82-1.77); Thyroid Stimulating Hormone 5.07 uIU/mL (0.27-4.20)
== END 2023-12-11 23:59 | disposition home or self-care (01) ==
PROVIDERS: Nurse Practitioner Family; PCP Family Medicine; Visit Provider Internal Medicine Medical Oncology
DX: D69.6 Thrombocytopenia, unspecified (principal); E03.9 Hypothyroidism, unspecified
CPT/HCPCS: 36415; 80053; 84439; 84443; 85025

== ENCOUNTER 2024-02-20 13:27 | Oncology outpatient (recurring) (ONCR) | payer BC, MEDICAID, SELFPAY ==
[2024-02-20 13:48] LABS: Basophils % 0.6 %; Eosinophils # 0.3 10^3/uL (0.0-0.8); Eosinophils % 6.1 %; Hematocrit 42.4 % (37-53); Lymphocytes # 1.1 10^3/uL (0.8-4.8); Lymphocytes % 21.6 %; Mean Corpuscular HGB Conc 34.2 g/dL (30-55); Mean Corpuscular Hemoglobin 30.3 pg (27-33); Mean Corpuscular Volume 88.5 fl (82-101); Mean Platelet Volume 11.8 fL (7.4-10.4); Monocytes # 0.5 10^3/uL (0.2-0.9); Monocytes % 9.4 %; Neutrophils # 3.04 10^3/uL (1.8-7.7); Neutrophils % 61.9 %; Nucleated Red Blood Cells % 0 %; Platelet Count 124 10^3/cmm (157-399); Red Blood Count 4.79 10^6/uL (3.85-5.65); Red Cell Distribution Width 13.5 % (12.1-15.1); White Blood Count 4.91 10^3/uL (3.29-11.43)
[2024-02-20 14:01] LABS: Alanine Aminotransferase 27 U/L (0-41); Albumin Level 4.5 g/dL (3.5-5.2); Alkaline Phosphatase 81 U/L (40-130); Anion Gap 13.5 (5-19); Aspartate Amino Transferase 23 U/L (0-40); Blood Urea Nitrogen 11 mg/dL (8-23); Calcium 9.6 mg/dL (8.5-10.5); Carbon Dioxide 25 mmol/L (22-29); Chloride 105 mmol/L (98-107); Globulin 2.7 g/dL (1.3-4.6); Glomerular Filtration Rate 67.4 mL/min (90-130); Glucose 108 mg/dL (65-115); Osmolality Calculated 288 mOsm/kg (285-295); Potassium 4.5 mmol/L (3.5-5.1); Sodium 139 mmol/L (136-145); Total Bilirubin 1.9 mg/dL (0.15-1.2); Total Protein 7.2 g/dL (6.6-8.7)
== END 2024-03-12 23:59 | disposition home or self-care (01) ==
PROVIDERS: Nurse Practitioner Family; PCP Family Medicine; Visit Provider Internal Medicine Medical Oncology
DX: D69.6 Thrombocytopenia, unspecified (principal)
CPT/HCPCS: 36415; 80053; 85025

== ENCOUNTER 2024-07-19 07:15 | Oncology outpatient (recurring) (ONCR) | payer BC, MEDICAID, SELFPAY ==
--- NOTE | 2024-07-19 07:15 | USCV_ITS ---
Tomás Davis Age: 63 Gender: M : 1960 Exam Date: 07/19/2024 07:26 Ordering Phys: Antolin Arce M.D ([email or web address]) Technologist: Exam Location: [facility] – [place] Indication: mr mitral ring BP: 140 / 80 HR: 55 Rhythm: Sinus Technical Quality: Adequate MEASUREMENTS (Male / Female) Normal Values 2D ECHO LV Diastolic Diameter PLAX 5.6 cm 4.2 - 5.9 / 3.9 - 5.3 cm IVS Diastolic Thickness 1.3 cm 0.6 - 1.0 / 0.6 - 0.9 cm IVS Systolic Thickness 1.9 cm LVPW Diastolic Thickness 1.3 cm 0.6 - 1.0 / 0.6 - 0.9 cm LVPW Systolic Thickness 1.6 cm LVOT Diameter 2.0 cm LV Ejection Fraction 2D Teich 69.8 % LV Ejection Fraction MOD 4C 60.3 % LV Ejection Fraction MOD 2C 56.3 % LV Ejection Fraction 2C AL 57.7 % LA Diameter 5.2 cm RA Systolic Volume 4C AL 70.7 ml RA Systolic Volume 4C MOD 68.7 ml LA Sys Volume AL 143.4 cm cubed LA Sys Volume Index AL 72.1 cm cubed/m squared Aorta at Sinotubular Diameter 3.7 cm IVC Diameter 2.6 cm M-MODE LA Ao Ratio MM 1.6 AV Cusp Separation MM 2.0 cm DOPPLER AV Peak Velocity 111.0 cm/s LVOT Peak Velocity 73.0 cm/s AV Area Cont Eq vti 2.7 cm squared AV Area Cont Eq pk 2.1 cm squared MV Area PHT 4.0 cm squared Mitral E to A Ratio 2.6 TR Peak Velocity 319.0 cm/s TR Peak Gradient 40.7 mmHg TV Peak E Velocity 111.0 cm/s PV Peak Velocity 117.0 cm/s FINDINGS Left Ventricle Left ventricle is normal in size. LV systolic function is normal with EF of 55-60%. No regional wall abnormalities are seen. Right Ventricle Normal in size and function Right Atrium Dilated Left Atrium Severely dilated Mitral Valve Mitral valve annuloplasty ring seen. Mild to moderate mitral regurgitation. Aortic Valve Structurally normal aortic valve. No significant stenosis. Mild aortic regurgitation. Tricuspid Valve Insufficient TR jet to calculate RVSP. Pulmonic Valve Mild pulmonic regurgitation Pericardium Normal Aorta Normal in size IVC Appears to be normal CONCLUSIONS LV systolic function is normal with EF of 55-60%. Biatrial enlargement. Mitral valve annuloplasty ring seen. Mild to moderate mitral regurgitation Mild aortic regurgitation Mild pulmonic regurgitation Antolin Arce MD (Electronically Signed) Final Date: 28 Jul 2024 12:33 S
== END 2024-08-10 23:59 | disposition home or self-care (01) ==
LOC: RAD 07:16 → ONCMED 07-22 10:28
PROVIDERS: PCP Family Medicine; Visit Provider Internal Medicine
DX: D69.6 Thrombocytopenia, unspecified (principal); I34.0 Nonrheumatic mitral (valve) insufficiency
CPT/HCPCS: 93306

== ENCOUNTER → 2025-01-28 14:56 | Outpatient (BNVA) | payer MEDICARE, SELFPAY | PROVIDERS: PCP Family Medicine; Visit Provider Nurse Practitioner Family | DX: I48.91 Unspecified atrial fibrillation (principal); Z79.01 Long term (current) use of anticoagulants; Z79.82 Long term (current) use of aspirin; I34.0 Nonrheumatic mitral (valve) insufficiency; I11.0 Hypertensive heart disease with heart failure; I50.9 Heart failure, unspecified; N52.9 Male erectile dysfunction, unspecified; Z98.890 Other specified postprocedural states | CPT/HCPCS: 99213 ==